=== PATIENT | female | born 1980 | race Caucasian/White ===

== ENCOUNTER 2017-06-06 17:22 | Inpatient (IN) ==
--- NOTE | 2017-06-06 17:46 | Emergency Department Note ---
ED Disposition Clinical Impression: demise, Inevitable Disposition: Still a Patient Condition on Discharge: Fair Referrals: Masoud Woods [Primary Care Provider] - - Critical Care Critical Care Time: Yes Attestation: On , the high probability of a clinically significant, sudden or life threatening deterioration of the following system(s) required my full and direct attention, intervention and personal management. The time I documented below is in addition to time spent performing reported procedures but includes the following listed in this critical care notation. Total Critical Care Time: 33 Vital system(s) involved:: Circulatory Failure My critical care processes included: Assessment & monitoring of V/S, Initial and Re-exams, Data Review/Interpretation, Coordinating Care, Documentation Medical Decision Making - Vasile Inquiry Pt receiving controlled substance: No Vital Signs: 06/06/17 17:26 06/06/17 17:57 Pulse Rate [Right Radial] 123 H 111 H Respiratory Rate 32 H 26 H Blood Pressure [Right Arm] 162/104 142/76 Blood Pressure Mean [Right Arm] 123 98 Blood Pressure Source [Right Arm] Automatic Cuff Automatic Cuff Blood Pressure Position [Right Arm] Sitting Sitting 02 Sat by Pulse Oximetry 94 L 99 Oxygen Delivery Method Room Air Nasal Cannula Oxygen Flow Rate (LPM) 2 - Lab Data Lab Results 06/06/17 17:38: Blood Type A Positive, Crossmatch (AHG) See Detail Orders (Tests/Meds): ED MEDICATIONS Generic Name Dose Route Start Last Admin Trade Name Freq PRN Reason Stop Dose Admin Sodium Chloride 250 mls @ 25 mls/hr 06/06/17 18:00 Sod Chlor 0.9% 250ml Bag IV 06/07/17 17:59 .Q10H [facility] ORDERS Category Date Time Status PRBC [Red Blood Cells] Stat BBK 06/06/17 17:38 Results Type and Screen Stat BBK 06/06/17 17:38 Results Basic Metabolic Panel Stat Lab 06/06/17 17:30 Received CBC w/Auto Diff [Complete Blood Count Auto Diff] Stat Lab 06/06/17 17:30 Received Hemoglobin and Hematocrit Routine Lab 06/06/17 21:48 Ordered Medical Decision Narrative: Ultrasound at the bedside shows identifiable fetus consistent with 20 weeks plus size. Unable to detect heart tones with Doppler. Obstetrics was called immediately and a nurse came down to the emergency department. She is unable to find heart tones. Dr. Carrizales also contacted immediately and he came to the emergency department within minutes. He has performed a bedside ultrasound and heart tones could not be found. Diagnosed with demise and inevitable . He will take the patient to the operating room. 6:05 PM: The patient delivered a stillborn fetus, still in membranes, malodorous. Dr. Carrizales present. The patient will be taken to the operating room for D&C. General Adult HPI - General Chief complaint: Vaginal Bleeding Stated complaint: bleeding Mode of Arrival: EMS Limitations: No Limitations Description of Symptoms (Recalled from ER Triage Doc. by RN): bleeding for two hours and abd cramp - History of Present Illness HPI narrative: The patient arrives by ambulance with a report of with cramping and bleeding. The patient is now 8, para 4, AB 3 with an estimated last normal menstrual period of January 02. States menses have been irregular. She has had no care. Positive home test 1 month ago. Started having lower abdominal contraction type of pain with vaginal bleeding and passage of some tissue about 2 hours ago. Took a Percocet at home. Has a history of cervical cancer with surgical removal of most of her cervix about 10 years ago. She was told at that time she would not be able to bear children further but had a daughter 4 years ago. [facility] History I have reviewed the patient's past medical history: Yes - Social History Alcohol Intake: never - Psychiatric History Expresses thoughts of harming self/others: None Suicide Plan Description: No Plan ROS Obtained: Yes All systems reviewed & no additional complaints - Constitutional Constitutional: Denies fever(s) - Gastrointestinal Gastrointestingal: Reports: abdominal pain - Genitourinary Female Genitourinary: Reports abnormal vaginal bleeding Physical Exam - General General appearance: alert, in distress Comment: Rhythmic contraction pain - Head Head exam: atraumatic, normocephalic, normal inspection - Eye Eye exam: Present: normal appearance, PERRL, EOMI - ENT ENT exam: Present: normal exam, normal oropharynx, mucous membranes moist, TM's normal bilaterally, normal external ear exam - Neck Neck exam: Present: normal inspection, full ROM, trachea midline. Absent: meningismus, lymphadenopathy - Chest Chest inspection: Present: normal inspection, symmetric chest wall rise. Absent : tenderness - Respiratory Respiratory exam: Present: normal lung sounds bilaterally. Absent: respiratory distress - Cardiovascular Cardiovascular exam: Present: regular rate, normal rhythm. Absent: JVD - Abdominal Exam Abdominal exam: Present: tenderness. Absent: normal bowel sounds Comment: Uterus feels to be approximately 4 fingerbreadths above the umbilicus. Palpable contractions. - Bimanual exam: Present: other (Bulging bag of fluid present in the vaginal vault.) - Extremities Exam Extremities exam: Present: normal inspection, full ROM, normal capillary refill. Absent: calf tenderness - Neurological Exam Neurological exam: Present: alert, oriented X3 - Psychiatric Psychiatric exam: Present: anxious - Skin Skin exam: Present: warm, dry, intact
[2017-06-06 18:01] LABS: Basophils % 0.1 % (0.1-2.0); Eosinophils # 0.1 K/mm3 (0.0-0.4); Eosinophils % 0.5 % (0.1-12.0); Hematocrit 33.9 % (37.0-47.0); Hemoglobin 11.6 g/dL (12.2-16.2); Lymphocytes # 1.2 K/mm3 (0.7-4.5); Lymphocytes % 6.6 K/mm3 (10-50); Mean Corpuscular HGB Conc 34.3 g/dL (31.8-35.4); Mean Corpuscular Hemoglobin 29.3 pg (27.0-31.2); Mean Corpuscular Volume 85.3 fl (81-99); Mean Platelet Volume 9.5 fl (7.4-10.4); Monocytes # 0.6 K/mm3 (0.1-1.0); Monocytes % 3.6 % (1.7-9.3); Neutrophils % 89.3 % (37.0-80.0); Platelet Count 241 K/mm3 (142-424); Red Blood Count 3.97 M/mm3 (4.20-5.40); Red Cell Distribution Width 14.5 % (11.5-17.5); White Blood Count 17.9 K/mm3 (4.8-10.8)
[2017-06-06 18:24] LABS: Anion Gap 14.3 mEq/L (5-15); Potassium 3.3 mmoL/L (3.5-5.1)
[2017-06-06 19:16] LABS: Lymphocytes % 7 % (10-50); Monocytes % 5 % (2-9); Neutrophils % 88 % (42-76); RBC Morphology Normal; Total Cells Counted 100
--- NOTE | 2017-06-06 19:17 | Progress Note ---
[facility] Anesthesia Checklist - Patient Identification Patient Identification: Arm Band, Verbal (Name & ) - Structural Data Admitted From: Emergency Dept Planned Operative Procedure/s: d and e Consent for Planned Operative Procedure(s) Verified: Yes Verified Documents: Surgical Consent - NPO Status Verified Time NPO: 12:00 - Chart Verification Results Verified: CBC, BMP - Additional verifications Patient : No Anesthesia Reactions: No Hx Blood Transfusions: No Blood Transfusion Reaction: No Cephalosporin Allergy: No Previous Colonoscopy: No - Cardiovascular Assessment Heart Sounds: S1 & S2 Pulse Strength: Baseline Pulse Rhythm: Regular - Airway Assessment C-Spine Mobility Assessed: Yes TMJ Mobility Assessed: Yes Dentition: Poor Dentition - Neurological Assessment Level of Consciousness: Awake, Alert, Appropriate Hx Seizures: No Numbness or tingling in extremities: No - Anesthesia Plan Anesthesia Risk discussed: Yes Anesthesia Plan: Verified ASA Class: III Anesthesia Type: General [facility] Anesthesia HX I have reviewed the patient's past medical history: Yes Medical History: Reports:: Chronic Obstructive Pulmonary Disease (COPD), Gastroesophageal Reflux Disease(GERD) Denies:: Seizures Other Medical History: Denies: Blood Transfusion Reaction Other Surgeries: Yes: Dilation and Curettage, Other (choly) Amputation: No Fractures: No *Family Hx:: Unable to obtain
--- NOTE | 2017-06-06 19:18 | Progress Note ---
[facility] Anesthesia Record Part I Intake, IV Amount: 900 Estimated blood loss (mL): 500 Urine output (mL): 0 Blood Products used (#): none Blood Pressure: 94/65 SaO2: 96 Pulse Rate: 129 Respiratory Rate: 20 Temperature: 98.0 F Patient is:: Drowsy, Stable Stable to PACU at:: 19:12
--- NOTE | 2017-06-06 19:19 | Progress Note ---
[facility] Anesthesia Record Part II Discharge Time: 19:42 Destination: Surgical Day Care (OP Surgery) PACU nurse assessment reviewed?: Yes Patient Condition:: Good Anesthesia Complications:: None
--- NOTE | 2017-06-06 19:29 | Operative Note ---
Date of procedure: 06/06/17 Pre-op Diagnosis:: 1. 22 week intrauterine . 2. Spontaneous second trimester . 3. demise. 4. Retained products of conception. 5. Presumed chorioamnionitis. Post-op Diagnosis:: Same Procedure performed:: 1. Placental extraction. 2. Dilatation and sharp/suction curettage. Surgeon:: Dustin Carrizales MD TELEPHONE TRIAGE NURSE:: Herson Mueller Anesthesia: GETA Estimated blood loss (mL): 500 Clinical Note:: This 36-year-old 8, para 4, AB 3 white female presented to the emergency room, having had no care, with an estimated date of her at 22 weeks. She stated that she had a history of cervical cancer 10 years ago, treated by what sounds like a cone biopsy of the cervix. She stated that she was Rh+. She admitted to marijuana use and taking one Percocet today. She claims an allergy to morphine, which causes hives. She states that she takes no regular medications. The last Pap smear she had was approximately 4 years ago. She states that she was in the bathtub several hours prior to presenting in the emergency room, when she started to have heavy bleeding and contractions. She was brought by her to the emergency room, where she was found to be bleeding heavily (although her hemoglobin was 11.6 g). She was having regular contractions. heart tones were in audible with a Doptone. Her uterine fundus was at approximately 22 cm. Ultrasound revealed a vertex presentation but no cardiac activity. Pelvic examination revealed a completely dilated cervix and a large bag of water in the vagina, intact, with obvious parts inside. Patient had an IV in situ and was given 2 g of ampicillin. She was also given a milligram of Stadol for pain. The operating crew was called to attend what was planned to be a vaginal delivery under anesthesia, followed by a probable dilatation and curettage. Before this could be accomplished, however, the patient delivered spontaneously in bed, in a caul , a demised fully intact female infant. Fluid around the infant was foul- smelling, and was cultured aerobically and anaerobically. The cord was clamped and cut. The fetus was taken to the labor room for possible presentation to the patient later. The patient was then taken to the operating room for extraction of the placenta and dilatation and evacuation. She was stable throughout this process. Operative findings:: Large placenta, apparently abrupted, with large clots and a large volume of products of conception. Operative note:: After the patient was prepped and draped in the usual fashion and general anesthesia was administered, the umbilical cord was gently tugged, and a large placenta followed. The placenta was cultured aerobically and anaerobically, and the maternal surface appeared to have been abrupted. The cervix was completely open. The anterior lip of the cervix was grasped with a ring forceps , and a large bovine curette was introduced, with the retrieval of multiple chunks of products of conception. This was followed by suction with a #12 suction tip, and again by sharp curettage and suction, until it was felt that the cavity was clean. Intravenous Pitocin was then begun. The placenta was firming up at the close of the procedure. The estimated blood loss was 500 cc. The patient tolerated the procedure well. Her blood type is A+; therefore she is not a candidate for RhoGam. Because of the large amount of bleeding, and the likelihood of chorioamnionitis, the patient will be observed overnight on intravenous antibiotics. Condition: stable Disposition: observation Specimens:: Placenta, with products of conception. Complications:: None
[2017-06-06 20:31] LABS: Hematocrit 27.2 % (37.0-47.0)
[2017-06-07 06:56] LABS: Hematocrit 20.6 % (37.0-47.0); Hemoglobin 6.8 g/dL (12.2-16.2)
--- NOTE | 2017-06-07 07:32 | Progress Note ---
Internal Medicine - PN: Subj *Date: 06/07/17 (This is postop and day #1. The patient is afebrile. During the night, she became faint in the shower, and possibly had a seizure. However, she quickly recovered and has had no further episodes. She states that she has no seizure history. She also states that she had gestational diabetes with her last , and has a history of sarcoidosis. She also states that she is group B strep positive. She has been covered by IV ampicillin and Unasyn. She remains afebrile, but her hemoglobin this morning is 6.8 g. Her bleeding has significantly decreased. The plan is to transfuse her 2 units of packed cells today and observe. She has made arrangements for disposition of the baby (female). She has brought up the subject of subsequent sterilization.) *Time: 07:29 Exam Vital signs and Labs for Last 24 Hours: Temp Pulse Resp BP Pulse Ox 97.9 F 116 H 18 109/65 99 06/06/17 19:52 06/06/17 19:52 06/06/17 19:52 06/06/17 19:52 06/06/17 19:52 Laboratory Results - last 24 hr 06/06/17 20:25: Hgb 9.0 L D, Hct 27.2 L 06/06/17 22:07: POC Glucose 290 06/07/17 06:35: Hgb 6.8 L* D, Hct 20.6 L* I & O for Last 24 hours: Intake & Output 06/04/17 06/05/17 06/06/17 06/07/17 11:59 11:59 11:59 11:59 Intake Total 1225 / 3125 Balance 1225 / 3125
[2017-06-07 20:39] LABS: Hematocrit 25.2 % (37.0-47.0)
[2017-06-07 23:32] LABS: Hemoglobin 8.6 g/dL (12.2-16.2)
[2017-06-08 05:30] VITALS: BP 158/71
--- NOTE | 2017-06-08 06:57 | Progress Note ---
Internal Medicine - PN: Subj *Date: 06/08/17 *Time: 06:55 Interval history: This is postop day #2. The patient is afebrile. Vital signs stable. Hemoglobin 8.6 g after 2 units of packed cells. Cultures are still pending, but the patient is stable, and will be discharged today on oral iron. Exam Vital signs and Labs for Last 24 Hours: Temp Pulse Resp BP Pulse Ox 98.5 F 101 H 18 158/71 98 06/07/17 21:00 06/08/17 05:29 06/08/17 05:29 06/08/17 05:29 06/07/17 21:00 Laboratory Results - last 24 hr 06/07/17 06:35: Hgb 6.8 L* D, Hct 20.6 L* 06/07/17 18:30: Hgb 8.6 L D, Hct 25.2 L I & O for Last 24 hours: Intake & Output 06/05/17 06/06/17 06/07/17 06/08/17 11:59 11:59 11:59 11:59 Intake Total 1225 / 3125 192 / 192 Balance 1225 / 3125 192 / 192 Microbiology Reports for the Last 24 Hours: Microbiology 06/06/17 22:48 Blood Blood Culture - Preliminary NO GROWTH AFTER 24 HOURS 06/06/17 22:48 Blood Blood Culture - Preliminary NO GROWTH AFTER 24 HOURS
--- NOTE | 2017-06-08 07:03 | Discharge Summary ---
General - General Admission date: 06/06/17 Discharge date: 06/08/17 (This 36-year-old white female was admitted through the emergency room with uncertain dates (but approximately 20-22 weeks of gestation) and no care. She began bleeding heavily at home and aurelio strongly. The fetus was found to be demised by ultrasonic cardiac evaluation. Her cervix was completely dilated and an intact caul was in the vagina. Her hemoglobin at that time was 11.6 g. The plan was to take her to the operating room for vaginal delivery and possible D&C, but she delivered spontaneously in the emergency room. The female fetus was in fact demised. Appropriate cultures were taken, and then the patient was taken to the operating room, where she underwent a placental extraction and dilatation and curettage/evacuation. Large amount of fetid tissue was retrieved, and cultured, consistent with chorioamnionitis. The placenta appeared to be abrupted. The patient was observed overnight. She was started on intravenous Unasyn. Her postop hemoglobin was 9.0 g. During the night, she got up to use the restroom, and became faint. There was at least a suggestion that there was some seizure activity, but this was not confirmed her documented. With oxygen the patient recovered and did not have any further such episodes. A repeat hemoglobin at that time was 6.8 g, after which the patient was transfused 2 units of packed cells, and has done well. Her vital signs are now stable. Her hemoglobin is 8.6 g. She is eating and ambulating. Her bleeding is minimal. She remains afebrile. She is discharged home on the second postoperative day on iron twice a day and vitamins. She is given appropriate instructions as to diet and exercise, especially pelvic rest, and she is to return the office in 2 weeks for follow-up. Arrangements have been made with the home for the fetus. The patient is asking about permanent sterilization, which will be discussed in the office. She is Rh+.) Objective Vital signs: Temp Pulse Resp BP Pulse Ox 98.5 F 101 H 18 158/71 98 06/07/17 21:00 06/08/17 05:29 06/08/17 05:29 06/08/17 05:29 06/07/17 21:00 Results Labs on day of discharge: Labs from last 24 hours 06/07/17 06/07/17 18:30 06:35 Hgb 8.6 L D 6.8 L* D Hct 25.2 L 20.6 L* Preliminary micro results at discharge 06/06/17 22:48 Blood Culture - Preliminary Blood NO GROWTH AFTER 24 HOURS 06/06/17 22:48 Blood Culture - Preliminary Blood NO GROWTH AFTER 24 HOURS Discharge Plan - Patient Discharge Instructions - Follow up Plan Follow up with: Masoud Woods [Primary Care Provider] - Home Medications: Home Medications Medication Instructions Recorded Confirmed Type Albuterol Sulfate [Proair 90 mcg IH NEEDED PRN 06/07/17 06/07/17 History Respiclick] Buspirone HCl 15 mg PO DAILY 06/07/17 06/07/17 History Fluticasone Propionate 120 puffs IH NEEDED PRN 06/07/17 06/07/17 History [Fluticasone Hfa 220mcg Inhaler] Prescriptions/Medication Reconciliation: No Action Fluticasone Propionate [Fluticasone Hfa 220mcg Inhaler] 120 puffs IH NEEDED PRN PRN Reason: Shortness Of Breath Or Wheezing Albuterol Sulfate [Proair Respiclick] 90 mcg IH NEEDED PRN PRN Reason: Shortness Of Breath Or Wheezing Buspirone HCl 15 mg PO DAILY
== END 2017-06-08 08:20 | disposition home or self-care (01) ==
LOC: ER 17:22 → OR 18:28 → OB 18:33 → UNDODISIN 06-08 08:20
PROVIDERS: ADMIT Obstetrics & Gynecology; ATTEND Obstetrics & Gynecology

== ENCOUNTER 2021-01-12 00:14 | Emergency (ER) | payer MEDICAID, SELFPAY ==
[2021-01-12 00:25] VITALS: BP 149/89; PULSE 108; RESP 16; TEMP 36.7; O2SAT 100; BMI 31.9
--- NOTE | 2021-01-12 00:33 | [facility].EDANIB ---
ED Disposition Clinical Impression: Dog bite Qualifiers: Encounter type: initial encounter Qualified Code(s): W54.0XXA - Bitten by dog, initial encounter Disposition: Home, Self-Care Condition on Discharge: Good Instructions: Animal Bites Additional Instructions: use meds and see pcp for follow up Prescriptions: Amoxicillin/Potassium Clav [Augmentin 875-125 Tablet] 1 tab PO Q12H #14 tab Transmission Status: Pending to [facility]/pharmacy #[id number] Referrals: Masoud Woods [Primary Care Provider] - - Critical Care Critical Care Time: No Attestation: On 01/12/21, the high probability of a clinically significant, sudden or life threatening deterioration of the following system(s) required my full and direct attention, intervention and personal management. The time I documented below is in addition to time spent performing reported procedures but includes the following listed in this critical care notation. Medical Decision Making - Medical Records Medical records reviewed: Yes: I reviewed the patient's medical records. - Vasile Inquiry Pt receiving controlled substance: No Vital Signs: 01/12/21 00:25 Temperature 98.1 F Temperature Source Oral Pulse Rate [Apical] 108 H Respiratory Rate 16 Blood Pressure [Right Arm] 149/89 H Blood Pressure Mean [Right Arm] 109 Blood Pressure Source [Right Arm] Automatic Cuff Blood Pressure Position [Right Arm] Sitting 02 Sat by Pulse Oximetry 100 Oxygen Delivery Method Room Air Orders (Tests/Meds): ED MEDICATIONS Generic Name Dose Route Start Last Admin Trade Name Freq PRN Reason Stop Dose Admin Mupirocin 0 gm 01/12/21 09:00 Mupirocin 2% Ointment 22gm Tube TP 02/11/21 08:59 BID DYLAN Discontinued Medications Generic Name Dose Route Start Last Admin Trade Name Freq PRN Reason Stop Dose Admin Amoxicillin/Clavulanate Potassium 1 each 01/12/21 00:31 Amoxicillin/Pot Clavulan 500mg Tablet PO 01/12/21 00:32 ONCE ONE Tetanus Immune Globulin 250 unit 01/12/21 00:30 Tetanus Immune Globulin 250 Units IM 01/12/21 00:31 ONCE ONE Medical Decision Narrative: keep clean and see pcp for follow up and use meds Animal Bite HPI - General Chief Complaint: Animal Bite Stated Complaint: dog bite 01/10/21 on left leg Time Seen by Provider: 01/12/21 00:33 Mode of Arrival: Ambulatory Source of Information: Patient, Medical Record Limitations: No Limitations Description of Symptoms (Recalled from ER Triage Doc. by RN): Patient states that yesterday at approximately 1300 her aunts Vanessa bit her left calf. She states that she cleaned it with alcohol and applied steri-strips to it but has noticed increased redness and tenderness around the bite. - History of Present Illness HPI narrative: dog bite yesterday by known animal and reddness and tender tonight complaint: animal bite Onset (ago): day(s) Animal: dog Description of animal: household pet Mechanism: bite Left: lower leg Context: unprovoked Associated symptoms: none - Related Data Patient tetanus UTD: No Home Medications Medication Instructions Recorded Confirmed Albuterol Sulfate [Proair 90 mcg IH NEEDED PRN 06/07/17 06/07/17 Respiclick] Buspirone HCl [Buspirone 15 mg 15 mg PO DAILY 06/07/17 06/07/17 Tablets] Fluticasone Propionate 120 puffs IH NEEDED PRN 06/07/17 06/07/17 [Fluticasone Hfa 220mcg Inhaler] Previous Rx's Medication Instructions Recorded Amoxicillin/Potassium Clav 1 tab PO Q12H #14 tab 01/12/21 [Augmentin 875-125 Tablet] Allergies Allergy/AdvReac Type Severity Reaction Status Date / Time morphine Allergy Mild Rash Verified 06/06/17 20:30 [facility] History - Hepatitis A Screen Drug use history?: No High risk sexual behaviors?: No History of sexually transmitted infection?: No Currently employed?: No Childcare worker?: No Do you have indoor plumbing?: Yes Do you have electricity?: Yes Attestation statement:
[2021-01-12 00:50] VITALS: BP 149/89; PULSE 73; RESP 16; TEMP 36.8; O2SAT 100
== END 2021-01-12 00:53 | disposition home or self-care (01) ==
PROVIDERS: Emergency Provider Emergency Medicine; PCP Family Medicine
DX: S81.832A Puncture wound without foreign body, left lower leg, initial encounter (principal); W54.0XXA Bitten by dog, initial encounter; K21.9 Gastro-esophageal reflux disease without esophagitis; J44.9 Chronic obstructive pulmonary disease, unspecified
CPT/HCPCS: 96372; 99281; 99282

== ENCOUNTER 2021-10-23 06:30 | Inpatient (IN) | payer MEDICAID, SELFPAY ==
[2021-10-23] VITALS (10 sets, daily range): BP systolic 136–182; BP diastolic 79–106; PULSE 100–112; RESP 16–22; TEMP 36.5–36.9; O2SAT 97–100; BMI 32.5; BMI 39.2
--- NOTE | 2021-10-23 06:27 | ECG_ITS ---
APPROVED REPORT Exam: Resting ECG HR:119 bpm ECG Measurements Heart Rate 119 AXES OR 137 P 56 QRSd 134 QRS -73 QT 324 T 58 QTc 394 Conclusion SINUS TACHYCARDIA Left atrial abnormality RBBB LAFB ABNORMAL ECG UNCONFIRMED REPORT Electronically signed by : Herson Robb MD 10/24/2021 08:03:34
--- NOTE | 2021-10-23 06:34 | PC.NURSE ---
at speaking with pt
--- NOTE | 2021-10-23 06:38 | XR_ITS ---
PROCEDURE INFORMATION: Exam: XR Chest Exam date and time: 10/23/2021 8:13 AM Age: 41 years old Clinical indication: Shortness of breath; Additional info: SOA TECHNIQUE: Imaging protocol: Radiologic exam of the chest. Views: 1 view. COMPARISON: CT ANGIO CHEST PE PROTOCOL 10/23/2021 7:19 AM FINDINGS: Lungs: Unremarkable. No consolidation. Pleural spaces: There may be left pleural effusion. Heart/Mediastinum: Unremarkable. No cardiomegaly. Bones/joints: Unremarkable. IMPRESSION: There may be left pleural effusion.
--- NOTE | 2021-10-23 06:38 | CT_ITS ---
PROCEDURE INFORMATION: Exam: CTA Chest With Contrast Exam date and time: 10/23/2021 7:19 AM Age: 41 years old Clinical indication: Shortness of breath; Additional info: Chest pain, shortness of air TECHNIQUE: Imaging protocol: Computed tomographic angiography of the chest with contrast. 3D rendering (Not supervised by radiologist): MIP and/or 3D reconstructed images were created by the technologist. Radiation optimization: All CT scans at this facility use at least one of these dose optimization techniques: automated exposure control; mA and/or kV adjustment per patient size (includes targeted exams where dose is matched to clinical indication); or iterative reconstruction. Contrast material: ISOVUE 370; Contrast volume: 75 ml; Contrast route: INTRAVENOUS (IV); COMPARISON: No relevant prior studies available. FINDINGS: Pulmonary arteries: Normal. No pulmonary emboli. Aorta: Unremarkable. No aortic aneurysm. No aortic dissection. Lungs: Consolidation in the left lower lobe may represent atelectasis or pneumonia.. Pleural spaces: Large left pleural effusion. Smaller right pleural effusion.. Heart: Coronary artery calcifications may indicate coronary artery disease. Lymph nodes: Unremarkable. No enlarged lymph nodes. Bones/joints: Unremarkable. No acute fracture. Soft tissues: Unremarkable. IMPRESSION: 1. Large left pleural effusion. Smaller right pleural effusion.. 2. Consolidation in the left lower lobe may represent atelectasis or pneumonia..
--- NOTE | 2021-10-23 06:38 | CT_ITS ---
PROCEDURE INFORMATION: Exam: CT Abdomen And Pelvis With Contrast Exam date and time: 10/23/2021 7:19 AM Age: 41 years old Clinical indication: Bloating; Additional info: Chest pain, shortness of air, abdominal distension TECHNIQUE: Imaging protocol: Computed tomography of the abdomen and pelvis with contrast. Radiation optimization: All CT scans at this facility use at least one of these dose optimization techniques: automated exposure control; mA and/or kV adjustment per patient size (includes targeted exams where dose is matched to clinical indication); or iterative reconstruction. Contrast material: ISOVUE; Contrast volume: 75 ml; Contrast route: IV; COMPARISON: No relevant prior studies available. FINDINGS: Pleural spaces: Large left pleural effusion.. Liver: Normal. No mass. Gallbladder and bile ducts: Cholecystectomy Pancreas: Normal. No ductal dilation. Spleen: 17 mm mass in the spleen 28 Hounsfield units. Series 4, image 29.. Adrenal glands: Normal. No mass. Kidneys and ureters: There is no evidence of renal or ureteral calcifications.No hydronephrosis. Stomach and bowel: Diverticulosis of the rectosigmoid. Diverticulitis cannot be ruled out with this degree of surrounding fluid.. No obstruction Appendix: No evidence of appendicitis. Intraperitoneal space: Large amount of ascites throughout the abdomen and pelvis.. Vasculature: Unremarkable. No abdominal aortic aneurysm. Lymph nodes: Unremarkable. No enlarged lymph nodes. Urinary bladder: Unremarkable as visualized. Reproductive: Unremarkable as visualized. Bones/joints: Unremarkable. No acute fracture. Soft tissues: Findings consistent with anasarca. Extensive subcutaneous edema throughout the abdomen and pelvis. Umbilical hernia contains fluid. IMPRESSION: 1. Findings consistent with anasarca. 2. 17 mm mass in the spleen 28 Hounsfield units. Series 4, image 29.. For patients without history of cancer, recommend follow-up MRI in 6-12 months. With history of cancer, recommend evaluation with non-emergent PET vs. MRI vs. biopsy. 3. Large left pleural effusion.. 4. Large amount of ascites throughout the abdomen and pelvis.. 5. Extensive subcutaneous edema throughout the abdomen and pelvis. 6. Diverticulosis of the rectosigmoid. Diverticulitis cannot be ruled out with this degree of surrounding fluid..
[2021-10-23 06:39] LABS: Appearance,Urine CLOUDY (Clear); Blood, Urine Negative (Negative); Color,Urine DK YELLOW (Yellow); Coronavirus 19, PCR Not Detected (NotDetected); Glucose,Urine (UA) Negative (Negative); Influenza A, PCR Not Detected (NotDetected); Influenza B, PCR Not Detected (NotDetected); Ketones,Urine Negative (Negative); Leukocyte Esterase,Urine Negative (Negative); Microscopic, Urine URINE MICROSCOPIC (MICROSCOPIC); Nitrate,Urine POSITIVE (Negative); Protein,Urine 2+ (Negative); Specific Gravity, Urine >= 1.030 (1.005-1.030)
[2021-10-23 06:43] LABS: Bilirubin,Urine 2+ (Negative)
[2021-10-23 06:45] LABS: Basophils # 0.2 K/mm3 (0-0.2); Basophils % 1.7 % (0.1-2.0); Eosinophils # 0.2 K/mm3 (0.0-0.4); Eosinophils % 1.3 % (0.1-12.0); Hematocrit 41.5 % (37.0-47.0); Hemoglobin 12.3 g/dL (12.2-16.2); Lymphocytes # 3.3 K/mm3 (0.7-4.5); Lymphocytes % 26.9 % (10-50); Mean Corpuscular HGB Conc 29.7 g/dL (31.8-35.4); Mean Corpuscular Hemoglobin 22.8 pg (27.0-31.2); Mean Corpuscular Volume 76.7 fl (81-99); Monocytes # 0.8 K/mm3 (0.1-1.0); Monocytes % 6.7 % (1.7-9.3); Neutrophils # 7.7 K/mm3 (1.8-7.8); Neutrophils % 63.4 % (37.0-80.0); Platelet Count 362 K/mm3 (142-424); Red Blood Count 5.41 M/mm3 (4.20-5.40); Red Cell Distribution Width 20.5 % (11.5-17.5); White Blood Count 12.1 K/mm3 (4.8-10.8)
[2021-10-23 06:51] LABS: Bacteria,Urine 2+ /lpf; Squamous Epithelial Cell,Urine 20-50 #/hpf (0-5)
[2021-10-23 06:56] LABS: Alanine Aminotransferase 46 U/L (12-78); Albumin Level 3.4 g/dl (3.5-5.0); Alkaline Phosphatase 96 U/L (38-126); Anion Gap 15.3 mEq/L (5-15); Aspartate Amino Transferase 76 U/L (14-36); Bilirubin,Direct 1.4 mg/dl (0.0-0.4); Bilirubin,Indirect 0.8 mg/dL (0.0-0.9); Bilirubin,Total 2.2 mg/dl (0.2-1.3); Bilirubin,Unconjugated 0.9 mg/dL (0.0-1.1); Blood Urea Nitrogen 15 mg/dl (7-17); Calcium 8.7 mg/dl (8.4-10.2); Carbon Dioxide 22 mmol/L (22.0-30.0); Chloride 102 mmol/L (98-107); Estimated Glomerular Filt Rate 54 ml/min (>60); GFR (African American) 66 ML/MIN (>60); Glucose 108 mg/dl (74-100); Potassium 4.3 mmoL/L (3.5-5.1); Sodium 135 mmol/L (136-145); Total Protein,Serum 6.5 g/dl (6.3-8.2)
[2021-10-23 06:57] LABS: Activated Partial Thrombo Time 25.4 seconds (22.8-30.6); INR 1.93 (0.9-1.1); Lipase 62 U/L (23-300); Magnesium 1.3 mg/dl (1.6-2.3); Phosphorous 5.1 mg/dl (2.5-4.5); Prothrombin Time 20.8 seconds (10.1-12.5)
[2021-10-23 06:59] LABS: Lactic Acid 3.5 mmol/L (0.7-2.1)
[2021-10-23 07:02] LABS: VBG Base Excess -7.9 mmol/L (-2.4-2.3); VBG HCO3 19.1 mmol/L (23-30); VBG Oxygen Saturation 53.1 % (50-70); VBG PCO2 42.7 mmol/L (35-51); VBG PH 7.27 mmol/L (7.31-7.41); VBG PO2 35.3 mmol/L (28-40); VBG Total CO2 20.4 mmol/L (23-27)
--- NOTE | 2021-10-23 07:04 | HMH.EDGENADL ---
ED Disposition Condition on Discharge: Fair - Critical Care Critical Care Time: No <Heather Cruz N - Last Filed: 10/23/21 08:12> <Wong Martinez - Last Filed: 10/23/21 09:52> Clinical Impression: Hypomagnesemia, Amphetamine abuse Heart failure with acute decompensation, type unknown Qualifiers: Heart failure type: unspecified Qualified Code(s): I50.9 - Heart failure, unspecified Disposition: Admitted As Inpatient Attestation: On 10/23/21, the high probability of a clinically significant, sudden or life threatening deterioration of the following system(s) required my full and direct attention, intervention and personal management. The time I documented below is in addition to time spent performing reported procedures but includes the following listed in this critical care notation. Medical Decision Making - Vasile Inquiry Pt receiving controlled substance: No - Lab Data Result diagrams: 10/23/21 06:30 10/23/21 06:30 - ECG Data Tracing #1 Arrhythmias present: sinus tach Conduction abnormalities present: LAFB, RBBB <Heather Cruz - Last Filed: 10/23/21 08:12> - Lab Data Result diagrams: 10/23/21 06:30 10/23/21 06:30 <Wong Martinez - Last Filed: 10/23/21 09:52> Vital Signs: 10/23/21 06:21 10/23/21 08:40 10/23/21 09:28 Temperature 98.5 F 98.5 F Temperature Source Oral Oral Pulse Rate 105 H 109 H Pulse Rate [Right] 108 H Respiratory Rate 18 16 18 Blood Pressure 149/94 H 182/79 H Blood Pressure [Right Arm] 150/89 H Blood Pressure Mean [Right Arm] 109 Blood Pressure Source Automatic Cuff Blood Pressure Source [Right Arm] Automatic Cuff Blood Pressure Position Sitting Blood Pressure Position [Right Arm] Sitting 02 Sat by Pulse Oximetry 99 100 Oxygen Delivery Method Room Air Room Air - Lab Data Lab Results 10/23/21 06:30: Urine Color Dk yellow, Urine Appearance Cloudy, Urine pH 5.0, Ur Specific [place] >= 1.030, Urine Protein 2+, Urine Glucose (UA) Negative, Urine Ketones Negative, Urine Blood Negative, Urine Nitrate Positive, Urine Bilirubin 2+ A, Urine Urobilinogen 2.0, Ur Leukocyte Esterase Negative, Urine RBC 3-5, Urine WBC 10-20, Ur Squamous Epith Cells 20-50, Ur Renal Epithelial Cell 3-5, Urine Bacteria 2+, Hyaline Casts 3-5 10/23/21 06:30: SARS-CoV-2 (PCR) Not detected, Influenza A Untype (PCR) Not detected, Influenza Type B (PCR) Not detected 10/23/21 06:30: PT 20.8 H, INR 1.93 H, APTT 25.4 10/23/21 06:30: Phosphorus 5.1 H, Magnesium 1.3 L, Troponin I 0.08 H, Lipase 62 10/23/21 06:30: Lactate 3.5 H 10/23/21 06:30: Sodium 135 L, Potassium 4.3, Chloride 102, Carbon Dioxide 22, Anion Gap 15.3 H, BUN 15, Creatinine 1.10 H, Estimated GFR 54 L, Est GFR ( Amer) 66, Glucose 108 H, Calcium 8.7, Total Bilirubin 2.2 H, Direct Bilirubin 1.4 H, Conjugated Bilirubin 0.0, Indirect Bilirubin 0.8, Unconjugated Bilirubin 0.9, AST 76 H, ALT 46, Alkaline Phosphatase 96, NT-Pro-B Natriuret Pep 7760 H, Total Protein 6.5, Albumin 3.4 L 10/23/21 06:30: WBC 12.1 H, RBC 5.41 H, Hgb 12.3, Hct 41.5, MCV 76.7 L, MCH 22.8 L, MCHC 29.7 L, RDW 20.5 H, Plt Count 362, MPV 9.0, Neut % (Auto) 63.4, Lymph % (Auto) 26.9, [place] % (Auto) 6.7, Eos % (Auto) 1.3, Baso % (Auto) 1.7, Neut # (Auto) 7.7, Lymph # (Auto) 3.3, [place] # (Auto) 0.8, Eos # (Auto) 0.2, Baso # (Auto) 0.2 10/23/21 06:30: Urine Opiates Screen Negative, Urine Methadone Screen Negative, Ur Barbituates Screen Negative, Ur Phencyclidine Scrn Negative, Ur Amphetamines Screen , U Benzodiazepines Scrn Negative, Urine Cocaine Screen Negative, U Marijuana (THC) Screen Positive H 10/23/21 06:30: Plasma/Serum Alcohol < 10 10/23/21 06:30: Urine HCG, Qual Negative 10/23/21 06:38: VBG pH 7.27 L, VBG pCO2 42.7, VBG pO2 35.3, VBG HCO3 19.1 L, VBG Total CO2 20.4 L, VBG O2 Saturation 53.1, VBG Base Excess -7.9 L Orders (Tests/Meds): ED MEDICATIONS Generic Name Dose Route Start Last Admin Trade Name Freq PRN Reason Stop Dose Admi
[2021-10-23 07:06] LABS: NT Pro Brain Natriuretic Pep. 7760 pg/mL (0-125)
[2021-10-23 07:09] LABS: Troponin I 0.08 ng/ml (0.00-0.034)
[2021-10-23 07:10] LABS: Urine Pregnancy, HCG Qual. Negative (Negative)
[2021-10-23 07:29] LABS: Barbiturates Screen,Urine Negative ng/ml (<200); Benzodiazepines Screen,Urine Negative ng/ml (<200)
[2021-10-23 07:31] LABS: Cannabinoid Screen,Urine Positive ng/ml (<50); Cocaine Screen,Urine Negative ng/ml (<300)
[2021-10-23 07:32] LABS: Methadone Screen,Urine Negative ng/ml (<300)
[2021-10-23 07:33] LABS: Opiate Screen,Urine Negative ng/ml (<300); Phencyclidine Screen,Urine Negative ng/ml (<25)
[2021-10-23 07:40] LABS: Ethyl Alcohol < 10 mg/dl (0-10)
--- NOTE | 2021-10-23 07:43 | PC.NURSE ---
trying to call rad to let them know that pt has a new iv
--- NOTE | 2021-10-23 07:43 | PC.NURSE ---
DR. ELMORE SPEAKING WITH DR. HOLLIS
--- NOTE | 2021-10-23 07:44 | PC.NURSE ---
[address], TECH REPORTS IV INFILTRATED. IV REMOVED FROM LEFT AC, SITE WRAPPED WITH COBAN. SITE OBSERVED, NO REDNESS OR SWELLING. ICE APPLIED. ARM ELEVATED 0740 NEW IV TO RIGHT AC, TOLERATED WELL. PT WITHOUT NEEDS AT THIS TIME
--- NOTE | 2021-10-23 07:47 | PC.NURSE ---
DR. ELMORE AT BEDSIDE, UPDATED PT ON POC.
--- NOTE | 2021-10-23 07:49 | PC.NURSE ---
DR. HERNANDEZ PAGED AT THIS TIME FOR ADMISSION
--- NOTE | 2021-10-23 07:55 | PC.NURSE ---
PT TO CT AT THIS TIME
--- NOTE | 2021-10-23 07:59 | PC.NURSE ---
DR. ELMORE SPEAKING WITH DR. HERNANDEZ
--- NOTE | 2021-10-23 08:04 | PC.NURSE ---
DR. HERNANDEZ ACCEPTS PT FOR ADMISSION, [employer] NOTIFIED OF ADMISSION
--- NOTE | 2021-10-23 08:07 | PC.NURSE ---
PT RETURNED FROM CT
--- NOTE | 2021-10-23 08:19 | PC.NURSE ---
Noris from lab called to advise that amphetamine level was too high to be analyzed and will need to be sent out. They stated that they will need another urine sample to do so. notified.
[2021-10-23 08:41] LABS: Ammonia 109 umol/L (9-30)
--- NOTE | 2021-10-23 08:57 | PC.NURSE ---
ATTEMPTED TO GIVE REPORT, NO ANSWER
--- NOTE | 2021-10-23 09:20 | PC.NURSE ---
0920 PT UP TO BR MULTIPLE TIME AFTER IV LASIX
--- NOTE | 2021-10-23 09:28 | PC.NURSE ---
0913 REPORT GIVEN TO Korina DE LA TORRE RN
--- NOTE | 2021-10-23 09:42 | PC.NURSE ---
Pt arrived to the floor at this time
--- NOTE | 2021-10-23 10:15 | HMH.HP ---
*Admission Date: 10/23/21 <Kajal Segovia - 10/23/21 10:24> *Chief complaint: shortness of breath <Kajal Segovia - 10/23/21 10:24> *History of present illness: This patient is a 41-year-old female with a history of hypertension, CHF, and gout presenting to the emergency department for evaluation of shortness of breath that has been slowly progressive but acutely worsened around 10:30 PM after she got stressed because she was yelling to her kids that were upstairs . At this time, she experienced palpitations that are persistent. She tried taking 5 aspirin, but had no relief. She reports that she takes lisinopril and a kidney pill at home, however she stopped taking them last week as she had gout in her L foot and was put on indomethacin and hydrocodone. She states that she stopped taking her lisinopril and her kidney pill, as they interacted with the indomethacin. Since then, she has had progressively worsening abdominal swelling and shortness of breath. She states that she feels like she is fluid overloaded, and her abdomen has increased to twice its normal size. Her abdominal stretch reese are swollen, and some of them had busted open. She states that she feels like it is causing significant pressure on her chest and making it hard to breathe. She states that she has had issues like this before, but it resolved after taking her medications at home, elevating her feet, and drinking plenty of water. She has never been diagnosed with any kidney or liver problems. She is unable to further elaborate on her history of heart failure. She denies any history of alcohol or drug use. She was a smoker, however she states that she quit 1 month ago. Denies any recent fever, chills, cough, congestion, rashes, or other issues. She has had nausea, vomiting, and diarrhea. She does admit to recent left greater than right lower extremity swelling, but she attributes that to her gout. She denies any history of blood clots or clotting disorders. She does not see a doctor regularly. she uses holistic medicine. In summary, this patient is a 41-year-old female presenting to the emergency department for evaluation of palpitations, shortness of breath, and abdominal distention. Differential diagnoses include CHF exacerbation, acute renal failure, cirrhosis, pneumonia, pulmonary embolism, ACS, dysrhythmia. The patient is diaphoretic, tachycardic, tachypneic, and has choreoathetotic abnormal movements on exam. She has significant abdominal wall edema. Work-up including CBC, CMP, lipase, troponin, magnesium, BNP, VBG, coags, lactic acid, blood cultures, urinalysis, chest x-ray, EKG, CT pulmonary embolism protocol, and CT abdomen and pelvis with IV contrast. Patient already took aspirin prior to arrival. On reassessment, patient is still tachycardic but is hemodynamically stable. Labs consistent with acute decompensated heart failure with elevated BNP and troponin. She was also found to be hypomagnesemic, so 4 g of IV magnesium were ordered. Patient's lactate is elevated as well as her white count, however I presume this is due to stress due to the acute decompensated heart failure and likely hypoperfusion as a result. Given this, no antibiotics were ordered per sepsis protocol. UDS positive for amphetamines and marijuana - patient adamantly denies IVDU. Blood cultures are pending at this time. I spoke with Dr. Geiger with cardiology recommended proceeding with 80 mg of IV Lasix to diurese the patient and assist her cardiopulmonary status. He recommended proceeding with admission. Imaging is pending at this time. Dr. Martinez assumed care of the patient pending CT scans and admission. (Heather Cruz) Patient signed out to me pending CT scans. CT scans showed no emergent pathology. Showed diffuse anasarca that likely needs aggressive diuresis. Does show a pleural effusion that does not warrant emergent drainage at this time. No pulmonary embolism. Does show a splenic mass that ne
[2021-10-23 10:44] LABS: Reflex Lactic Add Lactic Reflex
[2021-10-23 10:51] LABS: Troponin I 0.06 ng/ml (0.00-0.034)
[2021-10-23 11:40] LABS: Lactic Acid Follow Up (RFLX 1) 3.1 mmol/L (0.7-2.1)
[2021-10-23 13:26] LABS: Reflex Lactic (2 hrs) Add Lactic Reflex
[2021-10-23 14:20] LABS: Troponin I 0.06 ng/ml (0.00-0.034)
[2021-10-23 15:42] LABS: Lactic Acid Follow up (RFLX 2) 3.2 mmol/L (0.7-2.1)
--- NOTE | 2021-10-23 16:51 | PC.NURSE ---
no changes since previous assessment. pt is alert and oriented X4. ambulating to and from bathroom with assistance, unsteady gait. pt appears anxious and restless. call light is in reach, bed in lowest position and wheels locked, bed alarm on and functioning.
[2021-10-24] VITALS (8 sets, daily range): BP systolic 114–159; BP diastolic 73–104; PULSE 80–120; RESP 17–19; TEMP 36.5–37.6; O2SAT 93–99; BMI 39.1
--- NOTE | 2021-10-24 06:29 | PC.NURSE ---
PT ALERT AND ORIENTED X 4. PT HAS BEEN RESTLESS AND IS CONSTANTLY MOVING AROUND. ABD IS STILL DISTENDED/SWOLLEN. BS ACTIVE X 4. PER PT LAST BM WAS 10/23/21. NO C/O OF SOA OR CHEST PAIN THIS SHIFT. PT AMBULATING TO BATHROOM W/ X 1 ASSIST. MONITORING VIA TELE. AT BEDSIDE. PT IS RESTING AT THIS TIME. CALL LIGHT IN REACH.
[2021-10-24 06:53] LABS: Basophils # 0.1 K/mm3 (0-0.2); Basophils % 0.8 % (0.1-2.0); Eosinophils # 0.2 K/mm3 (0.0-0.4); Eosinophils % 1.7 % (0.1-12.0); Hematocrit 34.6 % (37.0-47.0); Hemoglobin 10.5 g/dL (12.2-16.2); Lymphocytes # 1.9 K/mm3 (0.7-4.5); Lymphocytes % 20.6 % (10-50); Mean Corpuscular HGB Conc 30.5 g/dL (31.8-35.4); Mean Corpuscular Hemoglobin 22.8 pg (27.0-31.2); Mean Corpuscular Volume 74.7 fl (81-99); Mean Platelet Volume 9.4 fl (7.4-10.4); Monocytes # 0.7 K/mm3 (0.1-1.0); Neutrophils # 6.3 K/mm3 (1.8-7.8); Neutrophils % 68.9 % (37.0-80.0); Platelet Count 272 K/mm3 (142-424); Red Blood Count 4.63 M/mm3 (4.20-5.40); Red Cell Distribution Width 20.7 % (11.5-17.5); White Blood Count 9.1 K/mm3 (4.8-10.8)
[2021-10-24 07:00] LABS: Anion Gap 10.6 mEq/L (5-15); Blood Urea Nitrogen 17 mg/dl (7-17); Calcium 8.2 mg/dl (8.4-10.2); Carbon Dioxide 25 mmol/L (22.0-30.0); Chloride 100 mmol/L (98-107); Creatinine Clearance Estimated 123 mL/min (50-200); Estimated Glomerular Filt Rate 54 ml/min (>60); GFR (African American) 66 ML/MIN (>60); Glucose 115 mg/dl (74-100); Potassium 3.6 mmoL/L (3.5-5.1); Sodium 132 mmol/L (136-145)
--- NOTE | 2021-10-24 09:32 | HMH.ACPN2 ---
Internal Medicine - PN: Subj *Date: 10/24/21 *Time: 10:23 Interval history: Patient with no new complaints today, swelling seems a little better. Exam Vital signs and Labs for Last 24 Hours: Temp Pulse Resp BP Pulse Ox 98.1 F 105 H 18 159/104 H 96 10/24/21 07:36 10/24/21 07:36 10/24/21 07:36 10/24/21 07:36 10/24/21 07:36 Laboratory Results - last 24 hr 10/23/21 09:53: Troponin I 0.06 H 10/23/21 11:15: Lactate 3.1 H 10/23/21 13:30: Troponin I 0.06 H 10/23/21 15:12: Lactate 3.2 H 10/24/21 06:34: WBC 9.1, RBC 4.63, Hgb 10.5 L, Hct 34.6 L, MCV 74.7 L, MCH 22.8 L, MCHC 30.5 L, RDW 20.7 H, Plt Count 272, MPV 9.4, Neut % (Auto) 68.9, Lymph % (Auto) 20.6, [place] % (Auto) 8.0, Eos % (Auto) 1.7, Baso % (Auto) 0.8, Neut # (Auto) 6.3, Lymph # (Auto) 1.9, [place] # (Auto) 0.7, Eos # (Auto) 0.2, Baso # (Auto) 0.1 10/24/21 06:34: Sodium 132 L, Potassium 3.6, Chloride 100, Carbon Dioxide 25, Anion Gap 10.6, BUN 17, Creatinine 1.10 H, Estimated Creat Clear 123, Estimated GFR 54 L, Est GFR ( Amer) 66, Glucose 115 H, Calcium 8.2 L Vital Signs - 24 hr 10/23/21 09:49 10/23/21 14:32 10/23/21 16:08 Temperature 98.4 F 97.7 F Pulse Rate 100 H Pulse Rate [Right] 109 H 112 H Respiratory Rate 18 18 Blood Pressure [Right Arm] 182/79 H 161/97 H 02 Sat by Pulse Oximetry 97 99 10/23/21 19:32 10/23/21 20:00 10/23/21 21:40 Temperature 98.1 F Pulse Rate 110 H Pulse Rate [Right] 112 H Respiratory Rate 22 Blood Pressure [Right Arm] 154/106 H 136/91 H 02 Sat by Pulse Oximetry 98 10/24/21 00:00 10/24/21 04:00 10/24/21 07:36 Temperature 99.7 F H 98.3 F 98.1 F Pulse Rate 110 H 100 H Pulse Rate [Right] 116 H 111 H 105 H Respiratory Rate 19 19 18 Blood Pressure [Right Arm] 124/78 114/73 159/104 H 02 Sat by Pulse Oximetry 93 L 96 96 I & O for Last 24 hours: Intake & Output 10/21/21 10/22/21 10/23/21 10/24/21 23:59 23:59 23:59 23:59 Intake Total 360 / 360 360 / 360 Balance 360 / 360 360 / 360 Weight 258 lb 2 oz 258 lb 3.463 oz Microbiology Reports for the Last 24 Hours: Microbiology 10/23/21 06:30 Urine,Clean Catch Urine Culture - Preliminary NO GROWTH AFTER 24 HOURS - Constitutional no acute distress - *Routine HEENT Exam Head: Present: normocephalic Eye: Present: EOMI, PERRL ENT: Present: mucous membranes moist - *Routine Neck Exam Present: supple. Absent: lymphadenopathy - *Routine Respiratory Exam Present: CTA bilaterally - *Routine Cardiovascular Exam Present: RRR - *Routine Abdominal Exam Present: soft, normoactive bowel sounds, obese. Absent: tenderness - *Routine Extremities Exam Present: edema (1+ bilateral legs). Absent: cyanosis, clubbing - *Routine Skin Exam Present: warm. Absent: rash - *Routine Neurological Exam Present: alert, oriented X3 constant moving has slowed somewhat. Assessment and Plan (1) Heart failure with acute decompensation, type unknown Status: Acute Qualifiers: Heart failure type: unspecified Qualified Code(s): I50.9 - Heart failure, unspecified Category: Medical Code(s): I50.9 - Heart failure, unspecified (2) Amphetamine abuse Status: Acute Category: Medical Code(s): F15.10 - Other stimulant abuse, uncomplicated (3) Hypomagnesemia Status: Acute Category: Medical Code(s): E83.42 - Hypomagnesemia (4) Leukocytosis Status: Acute Category: Medical Code(s): D72.829 - Elevated white blood cell count, unspecified (5) UTI (urinary tract infection) Status: Acute Category: Medical Code(s): N39.0 - Urinary tract infection, site not specified (6) Ascites Status: Acute Category: Medical Code(s): R18.8 - Other ascites (7) Splenic mass Status: Acute Category: Medical Code(s): R16.1 - Splenomegaly, not elsewhere classified (8) Elevated troponin Status: Acute Category: Medical Code(s): R77.8 - Other specified abnormalities of plasm
--- NOTE | 2021-10-24 10:17 | PC.NURSE ---
DR. HERNANDEZ NOTIFIED OF BLOOD CULTURE RESULT AT THIS TIME.
--- NOTE | 2021-10-24 10:58 | HMH.PHAVTE ---
[facility] Pharmacy VTE Monitoring - Patient Demographics Admission date: 10/24/21 Report Date: 10/24/21 Time: 10:58 Allergies/Adverse Reactions: Patient Allergies morphine Allergy (Mild, Verified 10/23/21 07:45) Rash Height: 1.73 m Weight: 117.125 kg Patient Problems: Current Active Problems Heart failure with acute decompensation, type unknown (Acute) Hypomagnesemia (Acute) Amphetamine abuse (Acute) Leukocytosis (Acute) UTI (urinary tract infection) (Acute) Ascites (Acute) Splenic mass (Acute) Elevated troponin (Acute) Elevated lactic acid level (Acute) COPD (chronic obstructive pulmonary disease) (Chronic) GERD (gastroesophageal reflux disease) (Chronic) Hypertension (Chronic) - VTE Risk Labs: VTE Related Lab Results Hgb 10.5 g/dL (12.2-16.2) L 10/24/21 06:34 Hct 34.6 % (37.0-47.0) L 10/24/21 06:34 Plt Count 272 K/mm3 (142-424) 10/24/21 06:34 PT 20.8 seconds (10.1-12.5) H 10/23/21 06:30 INR 1.93 (0.9-1.1) H 10/23/21 06:30 APTT 25.4 seconds (22.8-30.6) 10/23/21 06:30 BUN 17 mg/dl (7-17) 10/24/21 06:34 Creatinine 1.10 mg/dl (0.52-1.04) H 10/24/21 06:34 Estimated Creat Clear 123 mL/min (50-200) 10/24/21 06:34 VTE Score: 4 VTE Risk Level: Low Risk - Prophylaxis Types of VTE Prophylaxis: Pharmacological Location of Applied Device: Not Applicable Pharmacologic Type: Enoxaparin (LOVENOX)
--- NOTE | 2021-10-24 16:33 | PC.NURSE ---
pt is alert and oriented X4. pt has been restless this shift. abdomen swollen and distended. ambulating to and from bathroom with assistance. no complaints of chest pain this shift. call light is in reach, bed in lowest position and wheels locked.
--- NOTE | 2021-10-24 18:20 | PC.NURSE ---
PT TOLD THIS RN THAT SHE WANTED TO GO OUTSIDE. THIS RN EDUCATED PT ON RISKS OF LEAVING THE FLOOR AND THAT IT WOULD BE AGAINST MEDICAL ADVICE FOR HER TO DO SO. AMA PAPER SIGNED AND IV WRAPPED. PAGED MD HERNANDEZ AT THIS TIME.
--- NOTE | 2021-10-24 19:09 | PC.NURSE ---
pt stated she wanted to leave floor. Dr Royal was contacted per protocol and stated that pt would need to sign out AMA rather than leaving floor. Slava Abebe RN and Korina Colvin RN asked pt if she would be ok with walking around the floor instead because Dr Royal was not comfortable with her leaving the floor unattended. pt stated her understanding and ambulated in hallway then stated that she wished to leave AMA and go to [facility]. She was educated on the risks of leaving AMA, stated her understanding of mentioned risks, demanded her IV be removed, signed paperwork. This RN took out IV and pt left with spouse under her own power with her belongings.
--- NOTE | 2021-10-24 23:44 | P.DS_ITS ---
General - General Admission date:: 10/23/21 Discharge date: 10/24/21 HPI HPI: This patient is a 41-year-old female with a history of hypertension, CHF, and gout presenting to the emergency department for evaluation of shortness of breath that has been slowly progressive but acutely worsened around 10:30 PM after she got stressed because she was yelling to her kids that were upstairs . At this time, she experienced palpitations that are persistent. She tried taking 5 aspirin, but had no relief. She reports that she takes lisinopril and a kidney pill at home, however she stopped taking them last week as she had gout in her L foot and was put on indomethacin and hydrocodone. She states that she stopped taking her lisinopril and her kidney pill, as they interacted with the indomethacin. Since then, she has had progressively worsening abdominal swelling and shortness of breath. She states that she feels like she is fluid overloaded, and her abdomen has increased to twice its normal size. Her abdominal stretch reese are swollen, and some of them had busted open. She states that she feels like it is causing significant pressure on her chest and making it hard to breathe. She states that she has had issues like this before, but it resolved after taking her medications at home, elevating her feet, and drinking plenty of water. She has never been diagnosed with any kidney or liver problems. She is unable to further elaborate on her history of heart failure. She denies any history of alcohol or drug use. She was a smoker, however she states that she quit 1 month ago. Denies any recent fever, chills, cough, congestion, rashes, or other issues. She has had nausea, vomiting, and diarrhea. She does admit to recent left greater than right lower extremity swelling, but she attributes that to her gout. She denies any history of blood clots or clotting disorders. She does not see a doctor regularly. she uses holistic medicine. In summary, this patient is a 41-year-old female presenting to the emergency department for evaluation of palpitations, shortness of breath, and abdominal distention. Differential diagnoses include CHF exacerbation, acute renal failure, cirrhosis, pneumonia, pulmonary embolism, ACS, dysrhythmia. The patient is diaphoretic, tachycardic, tachypneic, and has choreoathetotic abnormal movements on exam. She has significant abdominal wall edema. Work-up including CBC, CMP, lipase, troponin, magnesium, BNP, VBG, coags, lactic acid, blood cultures, urinalysis, chest x-ray, EKG, CT pulmonary embolism protocol, and CT abdomen and pelvis with IV contrast. Patient already took aspirin prior to arrival. On reassessment, patient is still tachycardic but is hemodynamically stable. Labs consistent with acute decompensated heart failure with elevated BNP and troponin. She was also found to be hypomagnesemic, so 4 g of IV magnesium were ordered. Patient's lactate is elevated as well as her white count, however I presume this is due to stress due to the acute decompensated heart failure and likely hypoperfusion as a result. Given this, no antibiotics were ordered per sepsis protocol. UDS positive for amphetamines and marijuana - patient adamantly denies IVDU. Blood cultures are pending at this time. I spoke with Dr. Geiger with cardiology recommended proceeding with 80 mg of IV Lasix to diurese the patient and assist her cardiopulmonary status. He recommended proceeding with admission. Imaging is pending at this time. Dr. Martinez assumed care of the patient pending CT scans and admission. (Heather Cruz) Patient signed out to me pending CT scans. CT scans showed no emergent pathology. Showed diffuse anasarca that likely needs aggressive diure
[2021-10-25 02:07] LABS: POC Glucose,Bedside 116 (70-110)
--- NOTE | 2021-10-25 14:08 | CARE MANAGER ---
Attempted to contact patient related to hospital discharge. No working number available. HAJA Zaidi
[2021-10-27 22:07] LABS: Amphetamine Negative (Cutoff=500); Amphetamines Positive (.); Methamphetamine Positive (.); Methamphetamine (GC/MS) >3000 ng/mL (Cutoff=500)
== END 2021-10-24 19:10 | disposition left against medical advice (07) | DRG 292 ==
LOC: ER 07:57 → 2ND 08:19
PROVIDERS: Admitting Provider Family Medicine; Emergency Provider Emergency Medicine; PCP Family Medicine; Visit Provider Family Medicine
DX: I11.0 Hypertensive heart disease with heart failure (principal); N39.0 Urinary tract infection, site not specified; I50.9 Heart failure, unspecified; E83.42 Hypomagnesemia; J44.9 Chronic obstructive pulmonary disease, unspecified; M10.9 Gout, unspecified; K21.9 Gastro-esophageal reflux disease without esophagitis; Z87.891 Personal history of nicotine dependence; F15.10 Other stimulant abuse, uncomplicated
CPT/HCPCS: 36415; 71045; 71275; 74177; 80048; 80076; 80305; 80324; 81001; 81025; 82140; 82803; 82962; 83605; 83690; 83735; 83880; 84100; 84484; 85025; 85610; 85730; 87040; 87077; 87086; 87186; 93005; 99285; C9803; J0696; J3475; U0003; U0005

== ENCOUNTER 2024-06-09 19:16 | Observation (INO) | payer MEDICAID, SELFPAY ==
[2024-06-09 19:22] VITALS: BP 149/88; PULSE 143; RESP 18; TEMP 38.7; O2SAT 100; BMI 37.2
--- NOTE | 2024-06-09 19:25 | ECG_ITS ---
APPROVED REPORT Exam: Resting ECG HR:140 bpm ECG Measurements Heart Rate 140 AXES MA 123 P 53 QRSd 132 QRS -89 QT 309 T 55 QTc 391 Conclusion SINUS TACHYCARDIA, POSSIBLE ATRIAL FLUTTER RIGHT BUNDLE BRANCH BLOCK [120+ ms QRS DURATION, UPRIGHT V1, 40+ ms S IN I/aVL/V4/V5/V6] LEFT ANTERIOR FASCICULAR BLOCK [QRS AXIS <= -45, QR IN I, RS IN II] LEFT VENTRICULAR HYPERTROPHY AND ST-T CHANGE [VOLTAGE CRITERIA PLUS ST/T ABNORMALITY] ABNORMAL ECG UNCONFIRMED REPORT Electronically signed by : Tico Marquez, 06/09/2024 23:15:52
--- NOTE | 2024-06-09 19:47 | XR_ITS ---
PROCEDURE INFORMATION: Exam: XR Chest Exam date and time: 06/09/2024 7:54 PM Age: 43 years old Clinical indication: Dyspnea TECHNIQUE: Imaging protocol: Radiologic exam of the chest. Views: 1 view. COMPARISON: CR XR CHEST PORTABLE 10/23/2021 8:13 AM FINDINGS: Lungs: Left basilar opacities partially silhouette the diaphragm are favored to represent combination of atelectasis/pleural effusion/consolidation. Pleural spaces: See Lungs finding. Heart/Mediastinum: Unremarkable. No cardiomegaly. Bones/joints: Unremarkable. IMPRESSION: Left basilar opacities partially silhouette the diaphragm are favored to represent combination of atelectasis/pleural effusion/consolidation.
--- NOTE | 2024-06-09 19:50 | ED_ITS ---
Discharge Plan Disposition Patient Disposition: Admitted Chief Complaint: Upper Respiratory Infection Clinical Impressions Clinical Impression: Influenza A, Hypomagnesemia, CAP (community acquired pneumonia), Heart failure with reduced ejection fraction, Hypokalemia, Tachycardia, Sepsis Discharge ED Provider: Ling Marquez General Adult HPI General Chief complaint: Upper Respiratory Infection Stated complaint: Fever,V/D Time Seen by Provider: 06/09/24 19:29 Mode of Arrival: Wheelchair Source of Information: Patient Description of Symptoms (Recalled from ER Triage Doc. by RN): Pt presents with c/o v/d, fever of 102 (no meds taken), congestion in her nose and chest, sore throat. History of Present Illness HPI narrative: Patient is a 43-year-old presenting with multiple complaints. She has a history of heart failure with reduced ejection fraction that was down to 15% in 2021. 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 1 year later her ejection fraction was 25%. She never got a defibrillator placed never followed up after that has not had an echo since 2022. No history of endocarditis or injection drug use. No history of coronary disease. She states over the last few days that she has had congestion burning in her chest cough nausea vomiting and diarrhea. She has been trying to take antipyretics at home without being able to get her fever down. Also has been trying to take cool baths also unsuccessful with that. Related Data Home Medications ?Medication ?Instructions ?Recorded ?Confirmed cholecalciferol (vitamin D3) 25 25 mcg PO DAILY Supplement 10/23/21 10/23/21 mcg (1,000 unit) tablet indomethacin 50 mg capsule 50 mg PO NEEDED PRN PAIN 10/23/21 10/23/21 omega-3 fatty acids-fish oil 340 1 each PO DAILY Supplement 10/23/21 10/23/21 mg-1,000 mg capsule vitamin E 268 mg (400 unit) capsule 400 unit PO DAILY Supplement 10/23/21 10/23/21 Allergies Allergy/AdvReac Type Severity Reaction Status Date / Time morphine Allergy Mild Rash Verified 10/23/21 07:45 [facility] Disclaimer: The information contained in this section may have been updated after the patient was seen, as this information can be updated by other users. Social History Smoking Status: Former smoker tobacco type: cigarettes alcohol intake: never substance use type: denies use current occupational status: unemployed Travel in the last 8 weeks: None housing: house caffeine: Yes Have you lived/traveled outside [place] in past 30 days?: No Contact w/someone who lives/traveled outside [place] past 30 days?: No Exposure to someone with infectious disease in past 14 days?: No Do you have a fever (greater than 100.4 F or 38 C)?: Yes Have you tested positive for COVID-19: No Exposed to someone with COVID-19 in past 14 days?: No Do you have a sore throat?: Yes Do you have a cough?: Yes Do you have any weakness?: Yes Do you have any diarrhea?: Yes Are you experiencing any unusual bleeding?: No Do you have any muscle aches/pain?: Yes Do you have any abdominal pain?: Yes Are you experiencing loss of taste or smell?: No Other Medical History Have you received the Flu Vaccine for this season: No Have you received the Pneumonia Vaccine: No ROS Obtained: Yes All systems reviewed & no additional complaints except as documented Physical Exam General General appearance: alert and in no apparent distress Respiratory Respiratory exam: Present normal lung sounds bilaterally; Absent respiratory distress Cardiovascular Cardiovascular exam: Present normal rhythm and tachycardia Neurological Exam Neurological exam: Present alert and oriented X3 Medical Decision Making Medical Records Screening: Per USPSTF and CDC recommendations, given the prevalence of disease in our region, it is our hospital?s policy to screen for HIV and viral Hepatitis for all patients aged 18 and over and those with ongoing risk factors. Vasile Inquiry Pt receiving controlled substance: No Vital Signs: 06/09/24 19:22 Temperature 101.7 F H Temperature Source Temporal Artery Scan Pulse Rate [Right] 143 H Respiratory Rate 18 Blood Pressure [Right Arm] 149/88 H Blood Pressure Mean [Right Arm] 108 Blood Pressure Source [Right Arm] Automatic Cuff Blood Pressure Position [Right Arm] Sitting 02 Sat by Pulse Oximetry 100 Oxygen Delivery Method Room Air Lab Data Lab results reviewed: Yes I reviewed the patient's lab results. Lab Results 06/09/24 20:04: WBC 7.3, RBC 5.51 H, Hgb 14.7, Hct 42.8, MCV 77.7 L, MCH 26.7 L, MCHC 34.3, RDW 14.3, Plt Count 190, MPV 13.0 H, Neut % (Auto) 88.1 H, Lymph % (Auto) 6.0 L, [place] % (Auto) 5.2, Eos % (Auto) 0.0 L, Baso % (Auto) 0.3, Neut # (Auto) 6.4, Lymph # (Auto) 0.4 L, [place] # (Auto) 0.4, Eos # (Auto) 0.0, Baso # (Auto) 0.0, Sodium 130 L, Potassium 2.9 L*, Chloride 94 L, Carbon Dioxide 25, Anion Gap 13.9, BUN 3 L, Creatinine 0.70, Estimated Creat Clear 180, Estimated GFR 91, Est GFR ( Amer) 110, Glucose 334 H, Lactate 2.4 H, Calcium 7.7 L, Magnesium 1.2 L, Total Bilirubin 0.3, AST 59 H, ALT 35, Alkaline Phosphatase 81, Troponin I 0.02, Total Protein 7.1, Albumin 4.2, Globulin 2.9, Albumin/Globulin Ratio 1.4, Serum HCG, Qual Negative 06/09/24 20:08: SARS-CoV-2 (PCR) Not detected, Influenza A Untype (PCR) Detected A, Influenza Type B (PCR) Not detected 06/09/24 21:02: Urine Color Yellow, Urine Appearance Clear, Urine pH 5.5, Ur Specific [place] 1.020, Urine Protein 2+ A, Urine Glucose (UA) 3+, Urine Ketones Small, Urine Blood 1+ A, Urine Nitrate Negative, Urine Bilirubin Negative, Urine Urobilinogen 0.2, Ur Leukocyte Esterase Negative, Urine RBC 3-5, Urine WBC None, Ur Squamous Epith Cells Occasional, Urine Bacteria None 06/09/24 20:04 06/09/24 20:04 Orders (Tests/Meds): ED MEDICATIONS Generic Name Dose Route Start Last Admin Trade Name Freq PRN Reason Stop Dose Admin Potassium Chloride/Water 100 mls @ 100 mls/hr 06/09/24 20:45 06/09/24 20:48 Potassium Chloride 10meq/100ml Ivpb IV 06/09/24 23:44 100 mls/hr Q1H DYLAN Administration Ceftriaxone Sodium 1 gm/ 50 mls @ 100 mls/hr 06/09/24 21:29 06/09/24 21:36 Sodium Chloride IV 06/09/24 21:58 100 mls/hr ONCE ONE Administration Discontinued Medications Generic Name Dose Route Start Last Admin Trade Name Asael PRN Reason Stop Dose Admin Acetaminophen 1,000 mg 06/09/24 19:47 06/09/24 19:59 Acetaminophen 500mg Tab PO 06/09/24 19:48 1,000 mg ONCE ONE Administration Belladonna Alkaloids 60 ml 06/09/24 20:41 06/09/24 20:48 Belladonna Alkaloids 60 Ml Ml PO 06/09/24 20:42 60 ml ONCE ONE Administration Lactated Ringer's 500 mls @ 999 mls/hr 06/09/24 20:00 06/09/24 19:59 Lactated Ringer's 1000 Ml Bag IV 06/09/24 20:30 999 mls/hr .Q31M DYLAN Administration Magnesium Sulfate 2 gm in 50 mls @ 50 mls/hr 06/09/24 20:31 06/09/24 20:48 Magnesium Sulfate 2gm/50ml Premix IV 06/09/24 21:30 50 mls/hr ONCE ONE Administration Azithromycin 500 mg/ Sodium 250 mls @ 250 mls/hr 06/09/24 21:29 Chloride IV 06/09/24 21:30 ONCE ONE Ibuprofen 800 mg 06/09/24 19:47 06/09/24 19:59 Ibuprofen 400 Mg Tablet PO 06/09/24 19:48 800 mg ONCE ONE Administration Ondansetron HCl 4 mg 06/09/24 19:47 06/09/24 19:59 Ondansetron 4mg/2ml Vial IV 06/09/24 19:48 4 mg ONCE ONE Administration Oseltamivir Phosphate 75 mg 06/09/24 20:44 06/09/24 20:48 Oseltamivir 75mg Capsule PO 06/09/24 20:45 75 mg ONCE ONE Administration Potassium Chloride 40 meq 06/09/24 20:31 06/09/24 20:48 Potassium Chloride 20meq Tab PO 06/09/24 20:32 40 meq ONCE ONE Administration ORDERS Category Date Time Status CXR --portable [XR chest portable] Stat Exams 06/09/24 19:47 Completed POCUS Point of Care (ER Only) Stat Exams 06/09/24 19:47 Taken CBC w/Auto Diff [Complete Blood Count Auto Diff] Stat Lab 06/09/24 20:04 Completed CMP [Comprehensive Metabolic Panel] Stat Lab 06/09/24 20:04 Completed Diarrhea 23 Panel, PCR Stat Lab 06/09/24 19:48 Ordered HCG Qualitative, Serum Stat Lab 06/09/24 20:04 Completed Lactic Acid Stat Lab 06/09/24 20:04 Completed Magnesium Stat Lab 06/09/24 20:04 Completed Rapid PCR Covid and Flu A/B Stat Lab 06/09/24 20:08 Completed Trop I [Troponin I] Stat Lab 06/09/24 20:04 Completed Troponin I Q3H Lab 06/09/24 23:00 Ordered Troponin I Q3H Lab 06/10/24 02:00 Ordered UA [Urinalysis and Microscopic] Stat Lab 06/09/24 21:02 Completed Blood Culture Stat Micro 06/09/24 20:29 Received Tissue Perfus/Sepsis Re-Eval Sepsis Re-Evaluation Performed: Yes Date Performed: 06/09/24 Time Performed: 21:38 Medical Decision Narrative: Patient is a 43-year-old female presenting today with flulike symptoms including cough body aches nausea vomiting diarrhea fever and tachycardia. However with her underlying significant comorbidities she certainly could be septic including bacteremia pneumonia bacterial GI infection urinary tract infection etc. I will perform a bedside ultrasound to evaluate the function of her heart. EKG was performed which I personally interpreted shows a ventricular rate of 140 she does have right bundle branch block left anterior fascicular block and LVH on her EKG. No acute ischemic changes noted. However this is a significantly abnormal EKG. Suggesting she has significant underlying heart disease. Blood cultures are pending. Will give 500 cc of fluids to minimally resuscitate her however given the concern for acute volume overload if I am aggressive with volume resuscitation will not give higher volumes of fluids until I evaluate her fluid responsiveness first. Tylenol and ibuprofen will also be administered from an antipyretic standpoint. Possible this is just the flu with subsequent systemic inflammatory response however will reassess after initial workup is complete. Chest x-ray performed which I personally interpreted which shows no infiltrates concerning for possible superimposed pneumonia however likely are viral. She is influenza positive. Labs overall not concerning however she does have significant lecture light abnormalities with a potassium of 2.9 and a magnesium of 1.2. Bedside ultrasound was performed which does in fact show a low ejection fraction and given that she is high risk for an arrhythmia therefore we will keep her in the hospital for resuscitation electrolyte replacement treatment for her influenza as well as possible superimposed pneumonia. She is technically septic did not do a 30 cc/kg bolus given her heart failure and she is improving. She is persistently tachycardic and heart rate is down into the 120s at this point and hospital medicine will admit for further evaluation and management Procedures Miscellaneous Procedure Procedure Performed: Limited cardiac ultrasound Indication: Dyspnea Identified structures: The heart was visualized in the parasternal long axis, parastenal short axis, apical four chamber and subxyphiod views. The IVC was visualized in the short axis and long axis at its entry into the right atrium. Findings: Patient is significantly tachycardic and difficult to assess ejection fraction but does appear to be moderately depressed without any regional wall motion abnormalities or significant right heart strain or pericardial effusion additionally patient had a dilated IVC at 2 cm with no respirophasic variation Impression: Limited ultrasound given the fact the patient significantly tachycardic however does appear to have a depressed ejection fraction Images were saved to permanent archive The study was technically adequate CPT: 02864-73 This study was performed by pr, and I personally interpreted all images/videos. Based on my clinical judgement, these images were adequate and did not necessitate further imaging. Limited lung ultrasound A focused ultrasound exam of the pleural spaces was performed to evaluate for pneumothorax, pulmonary edema, pleural effusion and/or consolidation. The ultrasound was performed with the following indications, as noted in the H&P: Dyspnea Identified structures: Right and left thoracic cavities were examined. Findings: Scant B-lines present primarily in the left anterior lung [place] no obvious pleural effusions otherwise normal lung sliding no significant consolidations noted Impression: Scant B-lines particular in the left lung field otherwise unremarkable lung ultrasound this is nonspecific Images were saved to permanent archive The study was technically adequate CPT 16588-11 This study was performed by pr, and I personally interpreted all images/videos. Based on my clinical judgement, these images were adequate and did not necessitate further imaging. Critical Care Critical Care Time Critical Care Time: Yes Attestation: On 06/09/24, the high probability of a clinically significant, sudden or life threatening deterioration of the following system(s) required my full and direct attention, intervention and personal management. The time I documented below is in addition to time spent performing reported procedures but includes the following listed in this critical care notation. Total Time Total Critical Care Time: 35
[2024-06-09] MEDS: IBUPROFEN 400 MG TABLET 800 MG PO (19:59)
[2024-06-09] MEDS: ACETAMINOPHEN 500MG TAB 1000 MG PO (19:59)
[2024-06-09] MEDS: ONDANSETRON 4MG/2ML VIAL 4 MG IV (19:59)
[2024-06-09] MEDS: LACTATED RINGERS 1000ML 500 ML 999 ML IV (19:59)
[2024-06-09 20:14] LABS: Coronavirus 19, PCR Not Detected (NotDetected); Influenza B, PCR Not Detected (NotDetected)
[2024-06-09 20:18] LABS: Basophils % 0.3 % (0.1-2.0); Hematocrit 42.8 % (37.0-47.0); Hemoglobin 14.7 g/dL (12.2-16.2); Lymphocytes # 0.4 K/mm3 (0.7-4.5); Mean Corpuscular HGB Conc 34.3 g/dL (31.8-35.4); Mean Corpuscular Hemoglobin 26.7 pg (27.0-31.2); Mean Corpuscular Volume 77.7 fl (81-99); Monocytes # 0.4 K/mm3 (0.1-1.0); Monocytes % 5.2 % (1.7-9.3); Neutrophils # 6.4 K/mm3 (1.8-7.8); Neutrophils % 88.1 % (37.0-80.0); Platelet Count 190 K/mm3 (142-424); Red Blood Count 5.51 M/mm3 (4.20-5.40); Red Cell Distribution Width 14.3 % (11.5-17.5); White Blood Count 7.3 K/mm3 (4.8-10.8)
[2024-06-09 20:24] LABS: Albumin Level 4.2 g/dl (3.5-5.0); Chloride 94 mmol/L (98-107); Sodium 130 mmol/L (136-145)
[2024-06-09 20:26] LABS: Blood Urea Nitrogen 3 mg/dl (7-17); Creatinine Clearance Estimated 180 mL/min (50-200); Estimated Glomerular Filt Rate 91 ml/min (>60); GFR (African American) 110 ML/MIN (>60); Magnesium 1.2 mg/dl (1.6-2.3)
[2024-06-09 20:27] LABS: Alanine Aminotransferase 35 U/L (12-78); Albumin/Globulin Ratio 1.4 (1.1-1.8); Alkaline Phosphatase 81 U/L (38-126); Anion Gap 13.9 mEq/L (5-15); Aspartate Amino Transferase 59 U/L (14-36); Bilirubin,Total 0.3 mg/dl (0.2-1.3); Calcium 7.7 mg/dl (8.4-10.2); Carbon Dioxide 25 mmol/L (22.0-30.0); Globulin 2.9 g/dL (1.3-3.2); Glucose 334 mg/dl (74-100); Potassium 2.9 mmoL/L (3.5-5.1); Total Protein,Serum 7.1 g/dl (6.3-8.2)
[2024-06-09 20:32] LABS: Lactic Acid 2.4 mmol/L (0.7-2.1)
[2024-06-09 20:38] LABS: Troponin I 0.02 ng/ml (0.00-0.034)
[2024-06-09 20:42] LABS: Influenza A, PCR Detected (NotDetected)
[2024-06-09] MEDS: KCl 10mEq/100ml 100 ML 100 MEQ IV ×3 (20:48→22:45)
[2024-06-09] MEDS: BELLADONNA ALKALOIDS 60 ML ML PO (20:48)
[2024-06-09] MEDS: OSELTAMIVIR 75MG CAPSULE 75 MG PO (20:48)
[2024-06-09] MEDS: MAGNESIUM SULFATE IN WATER 2 GM/50 ML PIGGYBACK IV (20:48)
[2024-06-09] MEDS: POTASSIUM CHLORIDE 20MEQ TAB 40 MEQ PO (20:48)
[2024-06-09 21:12] LABS: Microscopic, Urine URINE MICROSCOPIC (MICROSCOPIC)
[2024-06-09 21:17] LABS: Appearance,Urine Clear (Clear); Color,Urine Yellow (Yellow); PH,Urine 5.5 (5.0-8.5); Protein,Urine 2+ (Negative)
[2024-06-09 21:18] LABS: Bilirubin,Urine Negative (Negative); Blood, Urine 1+ (Negative); Glucose,Urine (UA) 3+ (Negative); Ketones,Urine Small (Negative); Leukocyte Esterase,Urine Negative (Negative); Nitrate,Urine Negative (Negative); Urobilinogen,Urine 0.2 EU/dl (0.2)
[2024-06-09 21:30] LABS: Squamous Epithelial Cell,Urine Occasional #/hpf (0-5)
[2024-06-09] MEDS: CEFTRIAXONE SODIUM 1 GM in 0.9 % SODIUM CHLORIDE 50 ML IV (21:36)
[2024-06-09 21:37] LABS: HCG Qualitative, Serum Negative (Negative)
[2024-06-09 22:02] VITALS: BP 116/97; PULSE 121; RESP 94; TEMP 37
[2024-06-09 22:12] VITALS: BP 116/97; PULSE 125; RESP 24; TEMP 37.3; O2SAT 94
[2024-06-09] MEDS: LACTATED RINGERS 1000ML 1,000 ML 125 ML IV (22:15)
--- NOTE | 2024-06-09 22:18 | PC.NURSE ---
Patient arrived to floor via wheelchair from ED at 22:00.
[2024-06-09 22:30] VITALS: PULSE 130
[2024-06-09] MEDS: AZITHROMYCIN 500 MG in 0.9 % SODIUM CHLORIDE 250 ML 250 MG IV (22:42)
[2024-06-09 22:50] VITALS: BP 116/97; PULSE 125; RESP 24; TEMP 37.3; O2SAT 94; BMI 26.7
[2024-06-09 22:52] VITALS: BMI 83.0
[2024-06-09] MEDS: FAMOTIDINE 20MG/2ML VIAL 20 MG IV (22:59)
[2024-06-09] MEDS: PROMETHAZINE HCL 25MG/ML 1ML VIAL 12.5 MG IV (23:20)
[2024-06-09 23:26] LABS: Troponin I 0.06 ng/ml (0.00-0.034)
--- NOTE | 2024-06-09 23:28 | P.HP_ITS ---
<Statement entered by Cole Licea MD - 06/10/24 19:51> Personally evaluated patient and agree with plan of care as outlined by the ECONOMICS ANALYST. History of Present Illness *Admission Date: 06/09/24 *Reason for visit:: Positive flu A , pneumonia, congestive heart failure *History of present illness: This 43-year-old obese female that smokes has been vomiting fever come into the emergency room and found to have flu A.. Patient's electrolytes are abnormal. And patient is actively retching. Chest x-ray shows left basilar opacities. And patient gives history of having in the past and ejection fraction as low as 15%. Presently on medications for treating CHF. Per the patient and also not in the chart no workup as far as following this with an echo in the last 2 years. Patient remains tachycardic at this time was running a fever now at normal temperature after being treated. Also noting elevated blood sugar at this time. Reviewing past medical history long-term smoker, CHF with an ominously low ejection fraction in the past per patient, loss of fetus with extremely low H&H in the past 2017, methamphetamine use with admission 2021. Presently the patient remains quite ill but she is alert oriented, and with meeting with the ER physician discussing the patient going over the labs chest x-ray and assessing the patient do believe that she needs to be admitted. Patient remains quite tachycardic giving fluids at this time treating fever. Starting on Tamiflu.. Plans to do an echo and have cardiology follow-up to find out exactly what the status of her congestive heart failure and ejection fractions are. Presently lower extremities with no edema pink with brisk capillary refill. [facility] Disclaimer: The information contained in this section may have been updated after the patient was seen, as this information can be updated by other users. Medical History Heart failure with preserved ejection fraction Heart murmur FH: cholecystectomy Surgical History H/O dilation and curettage H/O right heart catheterization Social History Smoking Status: Current every day smoker tobacco type: cigarettes alcohol intake: never substance use type: denies use current occupational status: unemployed Travel in the last 8 weeks: None housing: house caffeine: Yes Have you lived/traveled outside US in past 30 days?: No Contact w/someone who lives/traveled outside US past 30 days?: No Exposure to someone with infectious disease in past 14 days?: No Do you have a fever (greater than 100.4 F or 38 C)?: Yes Have you tested positive for COVID-19: No Exposed to someone with COVID-19 in past 14 days?: No Do you have a sore throat?: Yes Do you have a cough?: Yes Do you have any weakness?: Yes Are you experiencing any nausea/vomitting?: No Do you have any diarrhea?: Yes Are you experiencing any unusual bleeding?: No Do you have any muscle aches/pain?: Yes Do you have any abdominal pain?: Yes Are you experiencing loss of taste or smell?: No Other Medical History Have you received the Flu Vaccine for this season: No Have you received the Pneumonia Vaccine: No Review of Systems Review of Systems Review of systems:: pertinent systems reviewed and negative unless documented below Constitutional Constitutional: Reports as per HPI Eyes Eyes: Reports as per HPI ENT Ears, Nose, Mouth, and Throat: Reports as per HPI Comments: Denies sore throat *Cardiovascular Cardiovascular: Reports as per HPI Comments: Denies chest pain *Respiratory Respiratory: Reports as per HPI and Reports cough *Gastrointestinal Gastrointestinal: Reports as per HPI and Reports bloating *Genitourinary Genitourinary: Reports as per HPI Comments: Denies any burning with urination *Musculoskeletal Musculoskeletal: Reports as per HPI Integumentary/Breasts Skin/Breast: Reports as per HPI *Neurologic Neurologic: Reports as per HPI Psychiatric Psychiatric: Reports as per HPI Endocrine Endocrine: Reports as per HPI Hematologic/Lymphatic Hematologic/Lymphatic: Reports as per HPI Allergic/Immunologic Allergic/Immunologic: Reports as per HPI Meds Home Medications and Allergies Home Medications ?Medication ?Instructions ?Recorded ?Confirmed ?Type dapagliflozin propanediol 10 mg 10 mg PO DAILY 06/09/24 06/09/24 History tablet (Farxiga) lisinopril 20 1 tab PO BID 06/09/24 06/09/24 History mg-hydrochlorothiazide 12.5 mg tablet magnesium oxide 400 mg (241.3 mg 400 mg PO DAILY 06/09/24 06/09/24 History magnesium) tablet metoprolol succinate 100 mg 100 mg PO BID 06/09/24 06/09/24 History tablet,extended release 24 hr potassium chloride 20 mEq 20 meq PO DAILY 06/09/24 06/09/24 History tablet,extended release New Prescriptions to Start Prescriptions: Allergies Allergy/AdvReac Type Severity Reaction Status Date / Time morphine Allergy Mild Rash Verified 10/23/21 07:45 venom-honey bee Allergy Anaphylaxis Verified 06/09/24 23:01 Exam Data for Last 24 hours Vital signs and Labs for Last 24 Hours: Temp Pulse Resp BP Pulse Ox O2 Del Method 99.2 F 125 H 24 116/97 H 94 L Room Air 06/09/24 22:50 06/09/24 22:50 06/09/24 22:50 06/09/24 22:50 06/09/24 22:50 06/09/24 22:50 Laboratory Results - last 24 hr 06/09/24 20:04: WBC 7.3, RBC 5.51 H, Hgb 14.7, Hct 42.8, MCV 77.7 L, MCH 26.7 L, MCHC 34.3, RDW 14.3, Plt Count 190, MPV 13.0 H, Neut % (Auto) 88.1 H, Lymph % (Auto) 6.0 L, [place] % (Auto) 5.2, Eos % (Auto) 0.0 L, Baso % (Auto) 0.3, Neut # (Auto) 6.4, Lymph # (Auto) 0.4 L, [place] # (Auto) 0.4, Eos # (Auto) 0.0, Baso # (Auto) 0.0, Sodium 130 L, Potassium 2.9 L*, Chloride 94 L, Carbon Dioxide 25, Anion Gap 13.9, BUN 3 L, Creatinine 0.70, Estimated Creat Clear 180, Estimated GFR 91, Est GFR ( Amer) 110, Glucose 334 H, Lactate 2.4 H, Calcium 7.7 L, Magnesium 1.2 L, Total Bilirubin 0.3, AST 59 H, ALT 35, Alkaline Phosphatase 81, Troponin I 0.02, Total Protein 7.1, Albumin 4.2, Globulin 2.9, Albumin/Globulin Ratio 1.4, Serum HCG, Qual Negative 06/09/24 20:08: SARS-CoV-2 (PCR) Not detected, Influenza A Untype (PCR) Detected A, Influenza Type B (PCR) Not detected 06/09/24 21:02: Urine Color Yellow, Urine Appearance Clear, Urine pH 5.5, Ur Specific [place] 1.020, Urine Protein 2+ A, Urine Glucose (UA) 3+, Urine Ketones Small, Urine Blood 1+ A, Urine Nitrate Negative, Urine Bilirubin Negative, Urine Urobilinogen 0.2, Ur Leukocyte Esterase Negative, Urine RBC 3-5, Urine WBC None, Ur Squamous Epith Cells Occasional, Urine Bacteria None 06/09/24 : Troponin I 0.06 H I & O for Last 24 hours: Intake & Output 06/07/24 06/08/24 06/09/24 06/10/24 05:59 05:59 05:59 05:59 Weight 548 lb 1.106 oz Radiology Reports for the Last 24 Hours: Chest x-ray shows some opacity left basilar. I question whether there is early development some double trait in the right middle lobe Narrative: Patient states she has been ill since Monday, with increasing in fever cough and bodyaches Constitutional Constitutional: mild distress, morbidly obese and cooperative *Routine HEENT Exam Head: Present normocephalic and atraumatic Eye: Present EOMI, PERRL and normal accommodation ENT: Present mucous membranes moist and oropharynx clear *Routine Neck Exam Neck: Present supple, full ROM and trachea midline Comments: No lymphadenopathy Routine Chest/Breast/Axilla Exam Comments: No injury or pain found during assessment *Routine Respiratory Exam Respiratory: Present decreased breath sounds, CTA bilaterally, normal respiratory effort, able to speak in complete sentences and symmetric chest movement Comments: Patient has a dry persistent cough *Routine Cardiovascular Exam Cardiovascular: Present RRR, Normal S1, Normal S2 and tachycardia Comments: Patient's had a fever now down but heart rate remains in the 130s *Routine Abdominal Exam Abdominal: Present soft, normoactive bowel sounds and obese Comments: Very obese abdomen but no significant tenderness found on palpation *Routine Rectal Exam Rectal:: deferred *Routine Genitalia Exam Genitalia:: deferred *Routine Extremities Exam Comments: Examination of arms finds no injury moving joints well no signs of swelling nailbeds are pink. Examination lower extremities no edema, skin color normal. No signs of fluid overload Routine Back/Spine/Pelvis Exam Back/Spine: Present full ROM and CVA tenderness Comments: Patient able to sit up and move in the bed I did not stand her during the exam in the ER but showed no signs of back injury or any significant discomfort *Routine Skin Exam Skin: Present intact, dry, warm and normal turgor Comments: Skin is pink warm dry showing no signs of infection *Routine Neurological Exam Neurological: Present alert, oriented X3, CN II-XII intact, vision grossly intact, hearing grossly intact and normal speech Comments: No signs of neurological deficit found did an exam in the emergency room Routine Psychiatric Exam Psychiatric: Present normal affect, normal thought process, cooperative, good insight and good judgment Comments: Patient is easy to talk with good historian, and per being ill is quite easy to talk with and assess H&P: Result Impressions 1. Flu A with nausea and vomiting 2. Possible early development of pneumonia patient is smoker 3. Tachycardia related probably to illness and or fever. But a unsubstantiated history of significant lowered ejection fraction in the past Imaging and Cardiology Chest x-ray: Additional comments: Some left basilar consolidation unsure of cause. Question right middle lobe early development of some fluid Assessment and Plan *Assessment and plan (1) Influenza A: Status: Acute Category: Medical Code(s): J10.1 - Influenza due to other identified influenza virus with other respiratory manifestations (2) Tachycardia: Status: Acute Category: Medical Code(s): R00.0 - Tachycardia, unspecified (3) Hypokalemia: Status: Acute Category: Medical Code(s): E87.6 - Hypokalemia (4) Hypomagnesemia: Status: Acute Category: Medical Code(s): E83.42 - Hypomagnesemia (5) Vomiting: Status: Acute Qualifiers: Nausea presence: with nausea Vomiting type: unspecified Qualified Code(s): R11.2 - Nausea with vomiting, unspecified Category: Medical Code(s): R11.10 - Vomiting, unspecified (6) Fever: Status: Acute Qualifiers: Fever type: unspecified Qualified Code(s): R50.9 - Fever, unspecified Category: Medical Code(s): R50.9 - Fever, unspecified Plan 1. For present infectious illness will start to treat for pulmonary toileting add antibiotics for potential pneumonia treat the patient with fluids for fever and for positive influenza A 2. Due to the patient being ill concern over cardiac status question whether or not CHF with a very low ejection fraction from the past was related to other indices or is it a chronic condition that has not been worked up for the past 2 years. Will do echo and consult cardiology to evaluate patient's cardiac status especially with her being ill at this time.. Lab work returned with increased troponin. Believe related to the fever but will consider possible non-STEMI. Will order twelve-lead EKG
[2024-06-10] VITALS (7 sets, daily range): BP systolic 115–155; BP diastolic 71–87; PULSE 65–121; RESP 18–22; TEMP 36.6–37.2; O2SAT 94–100; BMI 38.0
[2024-06-10 00:12] LABS: Reflex Lactic Add Lactic Reflex
[2024-06-10 00:24] LABS: Lactic Acid Follow Up (RFLX 1) 1.9 mmol/L (0.7-2.1)
[2024-06-10] MEDS: METOCLOPRAMIDE HCL 10MG/2ML VIAL 5 MG IVP (00:31)
--- NOTE | 2024-06-10 00:34 | ECG_ITS ---
APPROVED REPORT Exam: Resting ECG HR:107 bpm ECG Measurements Heart Rate 107 AXES DE 149 P 23 QRSd 131 QRS -71 QT 354 T 48 QTc 417 Conclusion SINUS TACHYCARDIA RIGHT BUNDLE BRANCH BLOCK [120+ ms QRS DURATION, UPRIGHT V1, 40+ ms S IN I/aVL/V4/V5/V6] LEFT ANTERIOR FASCICULAR BLOCK [QRS AXIS <= -45, QR IN I, RS IN II] MINIMAL VOLTAGE CRITERIA FOR LVH, CONSIDER NORMAL VARIANT [MEETS CRITERIA IN ONE OF: R(aVL), S(V1), R(V5), R(V5/V6)+S(V1)] ABNORMAL ECG UNCONFIRMED REPORT Electronically signed by : Herson Robb MD 06/10/2024 08:52:04
[2024-06-10 03:25] LABS: Troponin I 0.06 ng/ml (0.00-0.034)
--- NOTE | 2024-06-10 05:41 | PC.NURSE ---
New Admit. Pt has been running ST on tele, but stable, other v/s, ox4, RA. Pt is on electrolyte protocol replacement for K+ and Mag. Droplet precautions maintain for Flu + pt. Pt tolerated IV ABX well. Plan of care ongoing.
[2024-06-10] MEDS: LEVALBUTEROL 1.25MG/3ML NEB 1.25 MG IH (06:28)
[2024-06-10] MEDS: humaLOG 100 UNITS/ML 10ML VIAL (SSI) SUBCUT ×2 (06:37→11:34)
[2024-06-10] MEDS: LACTATED RINGERS 1000ML 1,000 ML 125 ML IV (06:38)
[2024-06-10 06:39] LABS: POC Glucose,Bedside 293 (70-110)
--- NOTE | 2024-06-10 08:00 | HMH.PHAINT1 ---
Pharmacy Intervention Comments: MEDICATION RECONCILIATION COMPLETED ON PATIENT USING EXTERNAL FILL HISTORY FROM PHARMACY. -GEOVANNI RAINES, KELBYD
[2024-06-10 08:30] LABS: VBG Base Excess -2.4 mmol/L (-2.4-2.3); VBG HCO3 21.2 mmol/L (23-30); VBG Oxygen Saturation 98.3 % (50-70); VBG PCO2 29.6 mmol/L (35-51); VBG PH 7.47 mmol/L (7.31-7.41); VBG PO2 108.6 mmol/L (28-40); VBG Total CO2 22.1 mmol/L (23-27)
[2024-06-10] MEDS: FAMOTIDINE 20MG/2ML VIAL 20 MG IV (08:31)
[2024-06-10] MEDS: ENOXAPARIN 40MG/0.4ML SYRINGE 40 MG SUBCUT (08:33)
[2024-06-10 08:37] LABS: Basophils % 0.2 % (0.1-2.0); Eosinophils % 0.2 % (0.1-12.0); Hematocrit 40.4 % (37.0-47.0); Hemoglobin 13.4 g/dL (12.2-16.2); Lymphocytes # 0.7 K/mm3 (0.7-4.5); Lymphocytes % 10.6 % (10-50); Mean Corpuscular HGB Conc 33.2 g/dL (31.8-35.4); Mean Corpuscular Hemoglobin 26.7 pg (27.0-31.2); Mean Corpuscular Volume 80.6 fl (81-99); Mean Platelet Volume 12.6 fl (7.4-10.4); Monocytes # 0.4 K/mm3 (0.1-1.0); Monocytes % 6.1 % (1.7-9.3); Neutrophils # 5.1 K/mm3 (1.8-7.8); Neutrophils % 82.4 % (37.0-80.0); Platelet Count 154 K/mm3 (142-424); Red Blood Count 5.01 M/mm3 (4.20-5.40); Red Cell Distribution Width 14.6 % (11.5-17.5); White Blood Count 6.2 K/mm3 (4.8-10.8)
[2024-06-10] MEDS: OSELTAMIVIR 75MG CAPSULE 75 MG PO (08:44)
--- NOTE | 2024-06-10 08:54 | CA_ITS ---
APPROVED REPORT EXAM: Comprehensive 2D, Doppler, and color-flow Echocardiogram Product Management Manager: Mita Traore RVT Ht: 5 ft 8 in Wt: 251lbs BSA: 2.25 BP: 149/88 mmHg Indications: FLU A,HX CHF,HX CM,FEVER,RBBB,MURMUR,SMOKER 2D Dimensions LA Volume 38.00 mL LA Volume Index 16.89 mL/m2 (M/F) 16-34 M-Mode Dimensions RVDd 2.88 cm (0.9-2.6) LA Diam 4.00 cm (1.9-4.0) LVDd 5.61 cm (3.5-5.7) LVDs 4.00 cm (3.5-5.7) IVSd 1.12 cm (0.6-1.1) PWd 0.76 cm (0.6-1.1) EF (Teich) 54.60% FS 28.70% EDV (Teich) 154.30 mL TAPSE 2.58 (<1.7) ESV (Teich) 70.00 mL LV Diastology E Decel Time 253 (160-240 msec) E/A Ratio 0.9 Aortic Valve IRMA Index 1.32 cm2/m2 AoV Peak Jhonny. 215.0 (50-130 cm/s) AO Peak GR. 18.50 mmHg AO Mean GR. 9.40 (<5 mmHg) AO VTI 33.7 (18-25 cm) IRMA (VTI) 3.06 (2.5-4.5 cm2) Mitral Valve MV E Max Jhonny. 87.0 (40-130 cm/s) MV A Velocity 96.0 (40-130 cm/s) E/A Ratio 0.90 MV PHT 74.0 ms Pulmonary Valve PV Peak Velocity 120.0 (50-150 cm/s) Left Ventricle The left ventricle is normal size. The left ventricular systolic function is normal. The left ventricular ejection fraction is within the normal range. There is normal left ventricular wall thickness. There is normal LV segmental wall motion. The left ventricular diastolic function is normal. LVEF is 60%. Right Ventricle The right ventricle is normal size. The right ventricular systolic function is normal. Atria The left atrium size is normal. The right atrium size is normal. There is no Doppler evidence of interatrial shunt. Aortic Valve Aortic valve opens well. There is no aortic valvular stenosis. No aortic regurgitation is present. Mitral Valve The mitral valve is normal in structure. No evidence of mitral valve stenosis. Trace mitral regurgitation. Tricuspid Valve Tricuspid valve is grossly normal in structure and function. Trace tricuspid regurgitation. There is insufficient TR jet to estimate RVSP. Pulmonic Valve The pulmonary valve is normal in structure. Trace pulmonic regurgitation. Great Vessels The aortic root is normal in size. IVC is normal in size and collapses >50% with inspiration. Pericardium There is no pericardial effusion. Other Information Study Quality: Fair Conclusion Normal biventricular systolic function. No significant valvular stenosis or regurgitation. Electronically signed by : Louisa Blair MD 06/10/2024 12:00:38
[2024-06-10 08:55] LABS: Magnesium 1.7 mg/dl (1.6-2.3); Triglycerides 94 mg/dl (30-150); VLDL Cholesterol 19 mg/dL (0-40)
[2024-06-10 08:56] LABS: Chol/HDL Ratio 2.4 (1-3.5); Cholesterol 55 mg/dl (140-200); HDL Cholesterol 23 mg/dl (40-60)
[2024-06-10 08:57] LABS: Alanine Aminotransferase 34 U/L (12-78); Albumin Level 3.5 g/dl (3.5-5.0); Albumin/Globulin Ratio 1.2 (1.1-1.8); Alkaline Phosphatase 64 U/L (38-126); Anion Gap 9.3 mEq/L (5-15); Aspartate Amino Transferase 56 U/L (14-36); Bilirubin,Total 0.3 mg/dl (0.2-1.3); Blood Urea Nitrogen 8 mg/dl (7-17); Calcium 7.2 mg/dl (8.4-10.2); Carbon Dioxide 25 mmol/L (22.0-30.0); Chloride 98 mmol/L (98-107); Creatinine Clearance Estimated 143 mL/min (50-200); Estimated Glomerular Filt Rate 68 ml/min (>60); GFR (African American) 82 ML/MIN (>60); Globulin 2.9 g/dL (1.3-3.2); Glucose 340 mg/dl (74-100); Potassium 3.3 mmoL/L (3.5-5.1); Sodium 129 mmol/L (136-145); Total Protein,Serum 6.4 g/dl (6.3-8.2)
[2024-06-10 09:04] LABS: Direct LDL Cholesterol < 30.00 mg/dL (100-129)
[2024-06-10 09:27] LABS: Thyroid Stimulating Hormone 3.18 uIU/mL (0.465-4.68)
[2024-06-10] MEDS: SODIUM CHLORIDE 3% 15ML NEB 3 ML IH (09:29)
[2024-06-10 09:47] LABS: NT Pro Brain Natriuretic Pep. 406 pg/mL (0-125)
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
[2024-06-10 10:15] LABS: Hemoglobin A1C 7.5 % (4.0-6.0)
[2024-06-10] MEDS: METOPROLOL SUCCINATE XL 25MG TABLET 25 MG PO (11:27)
[2024-06-10] MEDS: POTASSIUM CHLORIDE 20MEQ TAB 40 MEQ PO (11:27)
[2024-06-10] MEDS: MAGNESIUM SULFATE IN WATER 2 GM/50 ML PIGGYBACK IV ×2 (11:28→12:38)
[2024-06-10 11:43] LABS: POC Glucose,Bedside 326 (70-110)
--- NOTE | 2024-06-10 13:04 | P.DS_ITS ---
General Admission date:: 06/09/24 HPI HPI HPI: This 43-year-old obese female that smokes has been vomiting fever come into the emergency room and found to have flu A.. Patient's electrolytes are abnormal. And patient is actively retching. Chest x-ray shows left basilar opacities. And patient gives history of having in the past and ejection fraction as low as 15%. Presently on medications for treating CHF. Per the patient and also not in the chart no workup as far as following this with an echo in the last 2 years. Patient remains tachycardic at this time was running a fever now at normal temperature after being treated. Al so noting elevated blood sugar at this time. Reviewing past medical history long-term smoker, CHF with an ominously low ejection fraction in the past per patient, loss of fetus with extremely low H&H in the past 2017, methamphetamine use with admission 2021. Presently the patient remains quite ill but she is alert oriented, and with meeting with the ER physician discussing the patient going over the labs chest x-ray and assessing the patient do believe that she needs to be admitted. Patient remains quite tachycardic giving fluids at this time treating fever. Starting on Tamiflu.. Plans to do an echo and have cardiology follow-up to find out exactly what the status of her congestive heart failure and ejection fractions are. Presently lower extremities with no edema pink with brisk c apillary refill. Hospital Course Hospital Course Hospital Course: Mary Ryder is a 44-year-old female with a medical history of HFrEF 15% in 2020 who presents with intractable nausea/vomiting and was admitted for influenza A, left lower lobe pneumonia. #Intractable nausea/vomiting #Influenza A #Community-acquired pneumonia ? Presented with intractable nausea/vomiting, found to be fluid positive with left lower lobe pneumonia. ? Clinically improved with antiemetics, Tamiflu, levofloxacin. ? Discharged with Tamiflu and levofloxacin for 4 more days. #History of HFrEF 15% ? Repeat ECHO today shows normal biventricular function. No signs of volume overload. #Type 2 diabetes ? hemoglobin A1c 7.5% ? Continue home Farxiga 10 mg. #Hypertension ? Continue home lisinopril, hydrochlorothiazide. Exam Data for Last 24 hours Vital signs and Labs for Last 24 Hours: Temp Pulse Resp BP Pulse Ox O2 Del Method 97.8 F 65 20 136/87 100 Room Air 06/10/24 11:18 06/10/24 11:18 06/10/24 11:18 06/10/24 11:18 06/10/24 11:18 06/10/24 11:18 Laboratory Results - last 24 hr 06/09/24 20:04: WBC 7.3, RBC 5.51 H, Hgb 14.7, Hct 42.8, MCV 77.7 L, MCH 26.7 L, MCHC 34.3, RDW 14.3, Plt Count 190, MPV 13.0 H, Neut % (Auto) 88.1 H, Lymph % (Auto) 6.0 L, [place] % (Auto) 5.2, Eos % (Auto) 0.0 L, Baso % (Auto) 0.3, Neut # (Auto) 6.4, Lymph # (Auto) 0.4 L, [place] # (Auto) 0.4, Eos # (Auto) 0.0, Baso # (Auto) 0.0, Sodium 130 L, Potassium 2.9 L*, Chloride 94 L, Carbon Dioxide 25, Anion Gap 13.9, BUN 3 L, Creatinine 0.70, Estimated Creat Clear 180, Estimated GFR 91, Est GFR ( Amer) 110, Glucose 334 H, Lactate 2.4 H, Calcium 7.7 L, Magnesium 1.2 L, Total Bilirubin 0.3, AST 59 H, ALT 35, Alkaline Phosphatase 81, Troponin I 0.02, Total Protein 7.1, Albumin 4.2, Globulin 2.9, Albumin/Globulin Ratio 1.4, Serum HCG, Qual Negative 06/09/24 20:08: SARS-CoV-2 (PCR) Not detected, Influenza A Untype (PCR) Detected A, Influenza Type B (PCR) Not detected 06/09/24 21:02: Urine Color Yellow, Urine Appearance Clear, Urine pH 5.5, Ur Specific [place] 1.020, Urine Protein 2+ A, Urine Glucose (UA) 3+, Urine Ketones Small, Urine Blood 1+ A, Urine Nitrate Negative, Urine Bilirubin Negative, Urine Urobilinogen 0.2, Ur Leukocyte Esterase Negative, Urine RBC 3-5, Urine WBC None, Ur Squamous Epith Cells Occasional, Urine Bacteria None 06/09/24 : Troponin I 0.06 H 06/10/24 00:08: Lactate 1.9 03/17/25 02:55: Troponin I 0.06 H 06/10/24 06:00: VBG pH 7.47 H, VBG pCO2 29.6 L, VBG pO2 108.6 H, VBG HCO3 21.2 L , VBG Total CO2 22.1 L, VBG O2 Saturation 98.3 H, VBG Base Excess -2.4, VBG Lactic Acid 2.0 06/10/24 06:32: POC Glucose 293 H 06/10/24 08:16: WBC 6.2, RBC 5.01, Hgb 13.4, Hct 40.4, MCV 80.6 L, MCH 26.7 L, MCHC 33.2, RDW 14.6, Plt Count 154, MPV 12.6 H, Neut % (Auto) 82.4 H, Lymph % (Auto) 10.6, [place] % (Auto) 6.1, Eos % (Auto) 0.2, Baso % (Auto) 0.2, Neut # (Auto) 5.1, Lymph # (Auto) 0.7, [place] # (Auto) 0.4, Eos # (Auto) 0.0, Baso # (Auto) 0.0, Sodium 129 L, Potassium 3.3 L, Chloride 98, Carbon Dioxide 25, Anion Gap 9.3, BUN 8 D, Creatinine 0.90 D, Estimated Creat Clear 143, Estimated GFR 68, Est GFR ( Amer) 82 D, Glucose 340 H, Hemoglobin A1c 7.5 H, Calcium 7.2 L, Magnesium 1.7 D, Total Bilirubin 0.3, AST 56 H, ALT 34, Alkaline Phosphatase 64, NT-Pro-B Natriuret Pep 406 H, Total Protein 6.4, Albumin 3.5 D, Globulin 2.9, Albumin/Globulin Ratio 1.2, Triglycerides 94, Cholesterol 55 L, LDL Cholesterol Direct < 30.00 L, VLDL Cholesterol 19, HDL Cholesterol 23 L, Cholesterol/HDL Ratio 2.4, TSH 3.18 06/10/24 11:32: POC Glucose 326 H* I & O for Last 24 hours: Intake & Output 06/07/24 06/08/24 06/09/24 06/10/24 23:59 23:59 23:59 23:59 Intake Total 760 / 760 Output Total 0 / 0 Balance 760 / 760 Weight 248.6 kg 113.852 kg Constitutional Constitutional: no acute distress and obese *Routine HEENT Exam Head: Present normocephalic Eye: Present EOMI and PERRL ENT: Present mucous membranes moist *Routine Neck Exam Neck: Present supple; Absent lymphadenopathy *Routine Respiratory Exam Respiratory: Present CTA bilaterally *Routine Cardiovascular Exam Cardiovascular: Present RRR *Routine Abdominal Exam Abdominal: Present soft and normoactive bowel sounds; Absent tenderness *Routine Extremities Exam Extremities: Absent cyanosis, clubbing or edema *Routine Skin Exam Skin: Present warm; Absent rash *Routine Neurological Exam Neurological: Present alert and oriented X3 Results Data Completed and Pending Labs on day of discharge: Labs from last 24 hours 06/10/24 06/10/24 06/10/24 11:32 08:16 06:32 WBC 6.2 RBC 5.01 Hgb 13.4 Hct 40.4 MCV 80.6 L MCH 26.7 L MCHC 33.2 RDW 14.6 Plt Count 154 MPV 12.6 H Neut % (Auto) 82.4 H Lymph % (Auto) 10.6 [place] % (Auto) 6.1 Eos % (Auto) 0.2 Baso % (Auto) 0.2 Neut # (Auto) 5.1 Lymph # (Auto) 0.7 [place] # (Auto) 0.4 Eos # (Auto) 0.0 Baso # (Auto) 0.0 VBG pH VBG pCO2 VBG pO2 VBG HCO3 VBG Total CO2 VBG O2 Saturation VBG Base Excess VBG Lactic Acid Sodium 129 L Potassium 3.3 L Chloride 98 Carbon Dioxide 25 Anion Gap 9.3 BUN 8 D Creatinine 0.90 D Estimated Creat Clear 143 Estimated GFR 68 Est GFR ( Amer) 82 D Glucose 340 H POC Glucose 326 H* 293 H Hemoglobin A1c 7.5 H Lactate Calcium 7.2 L Magnesium 1.7 D Total Bilirubin 0.3 AST 56 H ALT 34 Alkaline Phosphatase 64 Troponin I NT-Pro-B Natriuret Pep 406 H Total Protein 6.4 Albumin 3.5 D Globulin 2.9 Albumin/Globulin Ratio 1.2 Triglycerides 94 Cholesterol 55 L LDL Cholesterol Direct < 30.00 L VLDL Cholesterol 19 HDL Cholesterol 23 L Cholesterol/HDL Ratio 2.4 TSH 3.18 Serum HCG, Qual Urine Color Urine Appearance Urine pH Ur Specific [place] Urine Protein Urine Glucose (UA) Urine Ketones Urine Blood Urine Nitrate Urine Bilirubin Urine Urobilinogen Ur Leukocyte Esterase Urine RBC Urine WBC Ur Squamous Epith Cells Urine Bacteria SARS-CoV-2 (PCR) Influenza A Untype (PCR) Influenza Type B (PCR) 06/10/24 06/10/24 06/10/24 06:00 02:55 00:08 WBC RBC Hgb Hct MCV MCH MCHC RDW Plt Count MPV Neut % (Auto) Lymph % (Auto) [place] % (Auto) Eos % (Auto) Baso % (Auto) Neut # (Auto) Lymph # (Auto) [place] # (Auto) Eos # (Auto) Baso # (Auto) VBG pH 7.47 H VBG pCO2 29.6 L VBG pO2 108.6 H VBG HCO3 21.2 L VBG Total CO2 22.1 L VBG O2 Saturation 98.3 H VBG Base Excess -2.4 VBG Lactic Acid 2.0 Sodium Potassium Chloride Carbon Dioxide Anion Gap BUN Creatinine Estimated Creat Clear Estimated GFR Est GFR ( Amer) Glucose POC Glucose Hemoglobin A1c Lactate 1.9 Calcium Magnesium Total Bilirubin AST ALT Alkaline Phosphatase Troponin I 0.06 H NT-Pro-B Natriuret Pep Total Protein Albumin Globulin Albumin/Globulin Ratio Triglycerides Cholesterol LDL Cholesterol Direct VLDL Cholesterol HDL Cholesterol Cholesterol/HDL Ratio TSH Serum HCG, Qual Urine Color Urine Appearance Urine pH Ur Specific [place] Urine Protein Urine Glucose (UA) Urine Ketones Urine Blood Urine Nitrate Urine Bilirubin Urine Urobilinogen Ur Leukocyte Esterase Urine RBC Urine WBC Ur Squamous Epith Cells Urine Bacteria SARS-CoV-2 (PCR) Influenza A Untype (PCR) Influenza Type B (PCR) 06/09/24 06/09/24 06/09/24 Unknown 21:02 20:08 WBC RBC Hgb Hct MCV MCH MCHC RDW Plt Count MPV Neut % (Auto) Lymph % (Auto) [place] % (Auto) Eos % (Auto) Baso % (Auto) Neut # (Auto) Lymph # (Auto) [place] # (Auto) Eos # (Auto) Baso # (Auto) VBG pH VBG pCO2 VBG pO2 VBG HCO3 VBG Total CO2 VBG O2 Saturation VBG Base Excess VBG Lactic Acid Sodium Potassium Chloride Carbon Dioxide Anion Gap BUN Creatinine Estimated Creat Clear Estimated GFR Est GFR ( Amer) Glucose POC Glucose Hemoglobin A1c Lactate Calcium Magnesium Total Bilirubin AST ALT Alkaline Phosphatase Troponin I 0.06 H NT-Pro-B Natriuret Pep Total Protein Albumin Globulin Albumin/Globulin Ratio Triglycerides Cholesterol LDL Cholesterol Direct VLDL Cholesterol HDL Cholesterol Cholesterol/HDL Ratio TSH Serum HCG, Qual Urine Color Yellow Urine Appearance Clear Urine pH 5.5 Ur Specific [place] 1.020 Urine Protein 2+ A Urine Glucose (UA) 3+ Urine Ketones Small Urine Blood 1+ A Urine Nitrate Negative Urine Bilirubin Negative Urine Urobilinogen 0.2 Ur Leukocyte Esterase Negative Urine RBC 3-5 Urine WBC None Ur Squamous Epith Cells Occasional Urine Bacteria None SARS-CoV-2 (PCR) Not detected Influenza A Untype (PCR) Detected A Influenza Type B (PCR) Not detected 06/09/24 20:04 WBC 7.3 RBC 5.51 H Hgb 14.7 Hct 42.8 MCV 77.7 L MCH 26.7 L MCHC 34.3 RDW 14.3 Plt Count 190 MPV 13.0 H Neut % (Auto) 88.1 H Lymph % (Auto) 6.0 L [place] % (Auto) 5.2 Eos % (Auto) 0.0 L Baso % (Auto) 0.3 Neut # (Auto) 6.4 Lymph # (Auto) 0.4 L [place] # (Auto) 0.4 Eos # (Auto) 0.0 Baso # (Auto) 0.0 VBG pH VBG pCO2 VBG pO2 VBG HCO3 VBG Total CO2 VBG O2 Saturation VBG Base Excess VBG Lactic Acid Sodium 130 L Potassium 2.9 L* Chloride 94 L Carbon Dioxide 25 Anion Gap 13.9 BUN 3 L Creatinine 0.70 Estimated Creat Clear 180 Estimated GFR 91 Est GFR ( Amer) 110 Glucose 334 H POC Glucose Hemoglobin A1c Lactate 2.4 H Calcium 7.7 L Magnesium 1.2 L Total Bilirubin 0.3 AST 59 H ALT 35 Alkaline Phosphatase 81 Troponin I 0.02 NT-Pro-B Natriuret Pep Total Protein 7.1 Albumin 4.2 Globulin 2.9 Albumin/Globulin Ratio 1.4 Triglycerides Cholesterol LDL Cholesterol Direct VLDL Cholesterol HDL Cholesterol Cholesterol/HDL Ratio TSH Serum HCG, Qual Negative Urine Color Urine Appearance Urine pH Ur Specific [place] Urine Protein Urine Glucose (UA) Urine Ketones Urine Blood Urine Nitrate Urine Bilirubin Urine Urobilinogen Ur Leukocyte Esterase Urine RBC Urine WBC Ur Squamous Epith Cells Urine Bacteria SARS-CoV-2 (PCR) Influenza A Untype (PCR) Influenza Type B (PCR) DS: Diagnosis Discharge Diagnosis (1) Influenza A: Status: Acute Code(s): J10.1 - Influenza due to other identified influenza virus with other respiratory manifestations (2) Vomiting: Status: Acute Code(s): R11.10 - Vomiting, unspecified Qualifiers: Nausea presence: with nausea Vomiting type: unspecified Qualified Code(s): R11.2 - Nausea with vomiting, unspecified (3) Heart failure with reduced ejection fraction: Status: Acute Code(s): I50.20 - Unspecified systolic (congestive) heart failure Meds Home Medications and Allergies Home Medications ?Medication ?Instructions ?Recorded ?Confirmed ?Type dapagliflozin propanediol 10 mg 10 mg PO DAILY 06/09/24 06/09/24 History tablet (Farxiga) lisinopril 20 1 tab PO BID 06/09/24 06/09/24 History mg-hydrochlorothiazide 12.5 mg tablet magnesium oxide 400 mg (241.3 mg 400 mg PO BID 06/09/24 06/10/24 History magnesium) tablet metoprolol succinate 100 mg 100 mg PO BID 06/09/24 06/09/24 History tablet,extended release 24 hr potassium chloride 20 mEq 20 meq PO BID 06/09/24 06/10/24 History tablet,extended release levofloxacin 750 mg tablet 750 mg PO DAILY 4 days #4 tabs 06/10/24 Rx oseltamivir 75 mg capsule (Tamiflu) 75 mg PO BID 4 days #8 caps 06/10/24 Rx New Prescriptions to Start Prescriptions: Cole Rico oseltamivir [Tamiflu] Cole Licea Allergies Allergy/AdvReac Type Severity Reaction Status Date / Time morphine Allergy Mild Rash Verified 10/23/21 07:45 venom-honey bee Allergy Anaphylaxis Verified 06/09/24 23:01 Discharge Plan Disposition Patient Disposition: Home, Self-Care Condition: Fair Follow up Plan Follow up with: Macrina Rutledge APRN [Nurse Practitioner] - 07/08/24 11:00 am Masoud Woods [Primary Care Provider] - 06/13/24 10:45 am Prescriptions/Medication Reconciliation: New oseltamivir [Tamiflu] 75 mg Capsule 75 mg PO BID 4 Days Qty: 8 0RF levofloxacin 750 mg tablet 750 mg PO DAILY 4 Days Qty: 4 0RF Continued lisinopril-hydrochlorothiazide 20-12.5 mg tablet 1 tab PO BID metoprolol succinate 100 mg tablet extended release 24 hr 100 mg PO BID Patient Comments: TAKE 1 TABLET BY MOUTH TWICE A DAY magnesium oxide 400 mg (241.3 mg magnesium) tablet 400 mg PO BID Patient Comments: TAKE 1 TABLET BY MOUTH TWICE A DAY dapagliflozin propanediol [Farxiga] 10 mg tablet 10 mg PO DAILY Patient Comments: TAKE 1 TABLET BY MOUTH EVERY DAY potassium chloride 20 mEq tablet extended release 20 meq PO BID Problem Reconciliation Problems Reviewed?: Yes Patient Discharge Instructions Patient Instructions: Influenza, DI for Pneumonia -- Adult, DI for Nausea -- Adult, DI for Vomiting -- Adult Print Language: Occitan Providers Primary Care Provider: Masoud Woods Admit Provider: Cole Licea Attending Provider: Cole Licea
--- NOTE | 2024-06-12 10:40 | SW/DCPLANNER ---
Phoned patient x2 and patients and both say the prescriber that you have reached are no longer in service. 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
== END 2024-06-10 13:45 | disposition home or self-care (01) ==
LOC: ER 19:27 → 2ND 21:41
PROVIDERS: Nurse Practitioner Family; Physician Assistant; Admitting Provider Student in an Organized Health Care Education/Training Program; Emergency Provider Student in an Organized Health Care Education/Training Program; PCP Family Medicine; Visit Provider Student in an Organized Health Care Education/Training Program
DX: J18.9 Pneumonia, unspecified organism (principal); J10.1 Influenza due to other identified influenza virus with other respiratory manifestations; E87.6 Hypokalemia; E83.42 Hypomagnesemia; I50.20 Unspecified systolic (congestive) heart failure; Z88.5 Allergy status to narcotic agent; Z91.030 Bee allergy status; F17.210 Nicotine dependence, cigarettes, uncomplicated; Z79.899 Other long term (current) drug therapy; I42.8 Other cardiomyopathies; R11.2 Nausea with vomiting, unspecified; F15.11 Other stimulant abuse, in remission
CPT/HCPCS: 36415; 71045; 80053; 80061; 81001; 82803; 82962; 83036; 83605; 83735; 83880; 84443; 84484; 84703; 85025; 87040; 87070; 87205; 87636; 93005; 93306; 94640; 99291; G0378; J0456; J0696; J1650; J2405; J2550; J2765; J3475; J3480; J7050; J7120; J7614; S0028